=== PATIENT | male | born 1945 | race Hispanic/Latino ===

== ENCOUNTER 2019-08-21 10:56 | Inpatient (IN) | payer MEDICARE ==
[2019-08-21 12:09] LABS: #Eosinphils 0.4 thou/uL (0.0-0.7); #Monocytes 0.5 thou/uL (0.11-0.59); %Basophils 0.5 % (0.0-1.0); %Eosinophils 7.6 % (0.0-10.0); %Lymphocytes 33.1 % (21.0-51.0); %Monocytes 8.7 % (0.0-10.0); %Neutrophils 50.1 % (42.0-75.0); Hemoglobin 9.7 g/dL (14.0-18.0); Mean Corpuscular HGB CONC 34.7 g/dL (32.0-36.0); Mean Corpuscular Hemoglobin 30.6 pg (27.0-31.0); Mean Corpuscular Volume 88.3 fL (78.0-98.0); Mean Platelet Volume 7.1 fL (7.4-10.4); Platelet Count 184 thou/uL (130-400); RBC Distribution Width 12.6 % (11.5-14.5); Red Blood Cell (RBC) Count 3.17 mill/uL (4.70-6.10); White Blood Cell (WBC) Count 5.9 thou/uL (4.8-10.8)
[2019-08-21 12:38] LABS: ALT (SGPT) 23 U/L (8-55); AST (SGOT) 18 U/L (5-34); Albumin 2.7 g/dL (3.4-4.8); Alkaline Phosphatase 98 U/L (40-110); Anion Gap 10 mmol/L (10-20); BUN (Urea Nitrogen) 65 mg/dL (8.4-25.7); Bilirubin, Total 0.3 mg/dL (0.2-1.2); Calc. Creatinine Clearance 0 mL/min (70-130); Calcium 7.9 mg/dL (7.8-10.44); Carbon Dioxide 21 mmol/L (23-31); Chloride 108 mmol/L (98-107); Estimated GFR-MDRD 9; Globulin 3.1 g/dL (2.4-3.5); Glucose 131 mg/dL (83-110); Potassium 4.8 mmol/L (3.5-5.1); Protein, Total 5.8 g/dL (5.8-8.1); Sodium 134 mmol/L (136-145)
[2019-08-21] MEDS ORDERED: hydrALAZINE 20 MG/ML VIAL ONE (13:03)
[2019-08-21 13:18] LABS: PTT 30.7 SEC (22.9-36.1); Prothrombin Time 13.5 SEC (12.0-14.7)
[2019-08-21] MEDS ORDERED: Sodium Chloride 0.9% 1,000 ML IV SCH (13:45)
[2019-08-21] MEDS ORDERED: Acetaminophen 325 MG TAB PO PRN (13:45)
[2019-08-21] MEDS ORDERED: Calcium Carbonate 500 MG ChewTAB PO PRN (13:45)
[2019-08-21] MEDS ORDERED: Amlodipine 5 MG TAB PO SCH (15:00)
--- NOTE | 2019-08-21 15:27 | CON ---
DATE OF CONSULTATION: 08/21/2019 SERVICE: Nephrology. REASON FOR CONSULTATION: Acute renal failure. REQUESTING PHYSICIAN: Dr. Sunday Ramirez. CHIEF COMPLAINT: Dysuria and back pain. HISTORY OF PRESENT ILLNESS: A 74-year-old male, who presents to the hospital with worsening back pain and dysuria. The patient with known history of hypertension and diabetes, reportedly developed hematuria about a month ago in [place] and was seen by a doctor, and lab work did then show hematuria as well as proteinuria and creatinine of 6.93/6.83. The patient subsequently was seen at the [facility] recently and the plan was to get an ultrasound of the kidneys for evaluation of hematuria. However, the patient reportedly developed back pain, which worsened, and last night, he also developed dysuria, that has put him on presentation to the emergency room. The patient was found to have creatinine of 6.08, and was admitted for further evaluation and treatment. The patient thinks that the patient will be needing dialysis. The patient has not seen anybody for a long time. He, however, reportedly saw Dr. Flores of [facility] in April and had blood work done, which we do not have at this time. He denied nausea, vomiting, leg swelling, abdominal pain, but admitted to intermittent chest pain and exertional dyspnea. The patient also denied NSAID use. However, he has a brother, who is on dialysis. He also denied recent change in medication, fever, chills, or rigor. PAST MEDICAL HISTORY: 1. Hypertension. 2. Diabetes, on insulin. PAST SURGICAL HISTORY: None. FAMILY HISTORY: Significant for diabetes and end-stage renal disease. Two kids have diabetes and a brother has end-stage renal disease, on dialysis. SOCIAL HISTORY: The patient lives with family. Here he has an apartment in the area, but also visits [place] regularly. Drinks alcohol occasionally, currently, but used to drink heavily. He is a former smoker, but quit about 30 years ago. Denied recreational drug use. ALLERGIES: NO KNOWN DRUG ALLERGY REPORTED. HOME MEDICATIONS: The patient reports being on insulin, but was unable to tell me other medications he had taken or is taking. REVIEW OF SYSTEMS: Twelve-point review of systems performed was negative other than pertinent positives and negatives included in the history of present illness. PHYSICAL EXAMINATION: VITAL SIGNS: Initial vitals on presentation showed BP of 250/112, pulse 71, respiratory rate 18, SpO2 of 100% on room air, and pain 6/10. The patient was treated with hydralazine and blood pressure improved and is currently 168/80. GENERAL: Comfortable, elderly male, in no obvious distress. Afebrile. Anicteric. Acyanotic. HEENT: Normocephalic, atraumatic. Oral mucosa is moist. NECK: Supple, nontender with no JVD. CARDIOVASCULAR: Regular rhythm and rate with normal heart sounds 1 and 2. RESPIRATORY: Good air entry bilaterally with no obvious rhonchi, crackle, or use of accessory muscles. GI: Full, soft, nontender, nondistended with normal bowel sounds. EXTREMITIES: Grossly normal looking atraumatic with no edema or erythema. Distal pulses are palpable. FINAL CIGAR AND BOX EXAMINER: Conscious and alert oriented x3 with appropriate mental status. Cranial nerves 2 through 12 are grossly intact. DIAGNOSTIC DATA: CBC showed WBC count of 5.9, hemoglobin of 9.7, MCV of 88.3, platelet of 184. Coagulation panel showed PT 13.5, INR 1.0, PTT 30.7. CMP showed sodium 134, potassium 4.8, chloride 108, CO2 of 21, BUN 65, creatinine 6.03, glucose 131, calcium 7.9, total bilirubin 0.3, AST 18, ALT 23, alkaline phosphatase 98, total protein 5.8, albumin 2.7, globulin 3.1. Urinalysis is pending at this time. No image has been done. EKG showed normal sinus rhythm with rate of 65. No obvious ischemic changes were noted. ASSESSMENT: 1. Renal failure: Acute, is unclear. The patient had creatinine of 6.93 on July 27, but there is no any lab prior to July 27. Creatinine actually has improved compared to the level of 6.93 in July, it is currently 6.03, making at least a case for acute component. Chronic kidney disease cannot be ruled out given history of hypertension and diabetes. The patient also had proteinuria and hematuria on lab work of July 27, 2019 and July,. 2. Hypertensive urgency. 3. Hematuria. 4. Dysuria. 5. Bilateral back pain: Concerning for stone or obstructive uropathy. 6. Hyponatremia, mild. 7. Anemia in chronic kidney disease. 8. Hypoalbuminemia. PLAN: 1. We will get stat ultrasound of the kidney and bladder. 2. We will start the patient on sodium bicarb containing IV fluid. 3. We will get urinalysis as well as urine electrolytes. 4. We will also get vitamin D and intact PTH. 5. We will start the patient on amlodipine for blood pressure control. 6. We will recheck renal function in the morning. 7. We will also get iron chemistry in the morning. 8. Further treatment to follow depending on hospital course. We will also [facility]. Job ID: [id number]
[2019-08-21] MEDS: hydrALAZINE 20 MG/ML VIAL SLOW IVP PRN (15:31)
[2019-08-21] MEDS ORDERED: Insulin Regular 300 UNITS/3 ML VIAL SC PRN ×2 (15:48)
[2019-08-21] MEDS ORDERED: Dextrose 50% Abboject 50 ML SYRINGE SLOW IVP PRN (15:48)
[2019-08-21] MEDS ORDERED: Dextrose 5% in Water 1,000 ML IV PRN (15:48)
[2019-08-21] MEDS: Sodium Bicarbonate 75 MEQ in Sodium Chloride 0.45% 1,000 ML IV SCH (16:05)
[2019-08-21 16:10] LABS: Hemoglobin A1c 6.8 % (4.0-6.0)
--- NOTE | 2019-08-21 16:15 | ULT ---
Renal sonogram HISTORY: Renal insufficiency. FINDINGS: Right kidney is 10.5 cm length and left is 10.7 cm. No hydronephrosis or solid mass. Cysts arise from the cortex of each kidney, largest is at the superior pole of the right kidney measuring up to 5.3 cm. Urinary bladder is unremarkable. IMPRESSION: No evidence of urinary tract obstruction. Renal cysts.
[2019-08-21 16:29] VITALS: BMI 24.1
[2019-08-21] MEDS ORDERED: hydrALAZINE 25 MG TAB PO SCH ×2 (16:45→21:00)
--- NOTE | 2019-08-21 17:34 | PDOC.EVN ---
Event Note - Event Note Event Note: H&P dictated. Full code. DPOA - spouse
[2019-08-21 17:41] LABS: Bacteria/HPF None Seen HPF (None Seen); Bilirubin Negative (Negative); Blood, Urine Trace (Negative); Clarity Clear (Clear); Glucose, Urine (Dipstick) 150 mg/dL (Negative); Leukocyte Negative Leu/uL (Negative); Nitrite Negative (Negative); Protein, Urine (Dipstick) 300 mg/dL (Neg-Trace); RBC/HPF 0-3 HPF (0-3); Squamous Epithelial None Seen HPF (0-3); Urobilinogen Normal mg/dL (Less than 2); WBC/HPF 0-3 HPF (0-3)
--- NOTE | 2019-08-21 17:52 | HP ---
PRIMARY CARE PHYSICIAN: Emily Flores MD CHIEF COMPLAINT: Bilateral flank pain with dysuria of 1 week duration. HISTORY OF PRESENT ILLNESS: The patient is a 74-year-old male with diabetes mellitus, type 2, presented to the emergency room with above complaints. The patient was recently in [place]. He had worsening bilateral flank pain and dysuria, for which he was evaluated. He was found to have acute kidney injury. The patient returned to [place] and presented to the emergency room. He continues to have bilateral flank pain with burning in urination. His urine was initially dark; however, today, it is clearing. The pain is moderate in intensity without any aggravating or relieving factor. He denies similar symptoms in the past. He also had a renal ultrasound over there and was found to have a questionable tumor. He is unable to provide further details. In the emergency room, initial vital signs showed temperature 98.2, respirations of 18, pulse of 66 with a blood pressure of 250/112. His workup was consistent with acute kidney injury with creatinine of 6.03 and BUN 65. He received 20 mg IV hydralazine in the emergency room. PAST MEDICAL HISTORY: 1. Diabetes mellitus, type 2. 2. Hypertension. 3. GERD. PAST SURGICAL HISTORY: Cataract surgery. SOCIAL HISTORY: The patient denies any drug allergies. CURRENT HOME MEDICATION: The patient only takes Lantus 15 units daily. SOCIAL HISTORY: The patient is a former smoker. He currently lives in an apartment in [place]. He drinks alcohol socially. He quit smoking many years ago. He has approximately [id number] history of smoking. FAMILY HISTORY: Positive for diabetes mellitus, type 2. His brother is on hemodialysis. REVIEW OF SYSTEMS: All other review of systems was reviewed and was found negative. PHYSICAL EXAMINATION: VITAL SIGNS: As discussed above. GENERAL: A 74-year-old male, in no apparent distress. HEENT: Head, atraumatic and normocephalic. Sclerae are anicteric. Moist mucous membranes. No oral lesion. NECK: Supple. No JVD. No carotid bruit. LUNGS: Essentially clear to auscultation bilaterally. No wheezing, rales, or rhonchi. HEART: S1 and S2 present. No rubs or gallops. There is 2/6 systolic murmur over the mitral area. ABDOMEN: Soft with mild tenderness over the left flank. No rebound or guarding. EXTREMITIES: No edema or calf tenderness. NEUROLOGIC: Grossly nonfocal. Moves all 4 extremities. PSYCHIATRIC: Alert, awake, and oriented x3. SKIN: Warm and dry. LYMPH NODES: No palpable lymph nodes in the neck. PERIPHERAL VASCULAR: Radial pulses are palpable bilaterally. MUSCULOSKELETAL: No joint swelling or tenderness. LABORATORY FINDINGS: Chest x-ray film from [place] by my review was negative for infiltrate. EKG by my review showed sinus rhythm without significant ST-T wave changes. CBC showed WBC 5.9 with hemoglobin 9.7, hematocrit 28, platelet of 184. PT, INR, and PTT normal range. Chemistry showed sodium 134, potassium 4.8, chloride 108, bicarb 21, BUN 65, creatinine 6.03. Hemoglobin A1c 6.8. Renal ultrasound has been ordered. Report is pending at this time. IMPRESSION: 1. Acute kidney injury of unclear etiology. Rule out obstructive uropathy. His baseline creatinine is unknown. 2. Hypertension with hypertensive urgency. 3. Dysuria with hematuria. 4. Diabetes mellitus, type 2. 5. Gastroesophageal reflux disease. 6. Hyponatremia. 7. Metabolic acidosis secondary to renal failure. 8. Anemia, most likely secondary to renal insufficiency. PLAN: The patient will be monitored on the medical floor. Nephrology will be consulted. We will gently hydrate. Renal ultrasound is pending. We will start him on Flomax. We will add hydralazine for blood pressure control. Urinalysis is pending at this time. We will also add urine studies. We will recheck labs in a.m. We will start him on renal diet for now. Plan of care was discussed with the patient in detail. He stated understanding. The patient will require 2 to 3 days for stabilization. Job ID: [id number]
[2019-08-21 17:53] LABS: Creatinine, Urine 47.48 mg/dL (63-166)
[2019-08-21] MEDS: Famotidine 20 MG TAB PO SCH (21:23)
[2019-08-21] MEDS: Famotidine/PF 20 mg/2ml Vial SLOW IVP SCH (21:24)
[2019-08-21] MEDS: Tamsulosin HCl 0.4 MG CAP PO SCH (21:24)
[2019-08-22 06:31] LABS: #Basophils 0.1 thou/uL (0.0-0.2); #Eosinphils 0.4 thou/uL (0.0-0.7); #Lymphocytes 1.9 thou/uL (1.20-3.40); #Monocytes 0.5 thou/uL (0.11-0.59); #Neutrophils 2.7 thou/uL (1.40-6.50); %Basophils 2.2 % (0.0-1.0); %Eosinophils 6.6 % (0.0-10.0); %Lymphocytes 34.5 % (21.0-51.0); %Monocytes 8.3 % (0.0-10.0); %Neutrophils 48.4 % (42.0-75.0); Hemoglobin 9.1 g/dL (14.0-18.0); Mean Corpuscular HGB CONC 34.4 g/dL (32.0-36.0); Mean Corpuscular Hemoglobin 30.5 pg (27.0-31.0); Mean Corpuscular Volume 88.7 fL (78.0-98.0); Mean Platelet Volume 7.5 fL (7.4-10.4); Platelet Count 197 thou/uL (130-400); RBC Distribution Width 12.7 % (11.5-14.5); Red Blood Cell (RBC) Count 2.97 mill/uL (4.70-6.10); White Blood Cell (WBC) Count 5.5 thou/uL (4.8-10.8)
[2019-08-22 06:55] LABS: Albumin 2.4 g/dL (3.4-4.8); Anion Gap 13 mmol/L (10-20); BUN (Urea Nitrogen) 66 mg/dL (8.4-25.7); BUN/Creatinine Ratio 10.96; Calc. Creatinine Clearance 11 mL/min (70-130); Calcium 7.6 mg/dL (7.8-10.44); Carbon Dioxide 19 mmol/L (23-31); Chloride 109 mmol/L (98-107); Estimated GFR-MDRD 9; Glucose 95 mg/dL (83-110); Iron Binding Capacity, Total 181 mcg/dL (261-462); Phosphorus 5.3 mg/dL (2.3-4.7); Potassium 4.5 mmol/L (3.5-5.1); Sodium 136 mmol/L (136-145)
[2019-08-22 06:57] LABS: Iron 69 ug/dL (65-175); Iron Binding Capacity, Total 179 mcg/dL (261-462)
[2019-08-22] MEDS: Amlodipine 5 MG TAB PO SCH (08:26)
[2019-08-22] MEDS: hydrALAZINE 25 MG TAB PO SCH ×3 (08:26→21:39)
[2019-08-22] MEDS: Sodium Bicarbonate Tab 325 MG TAB PO SCH ×2 (08:26→21:39)
--- NOTE | 2019-08-22 11:54 | MRI ---
MRI Abdomen WO Con History: Kidney cyst Comparison: Renal ultrasound prior day Findings: Trace right pleural effusion. No significant pericardial fluid. Renal mass evaluation is li mited without intravenous contrast. No intrahepatic or extrahepatic dilatation is appreciated. No significant cholelithiasis. Mild third spacing of fluid in the retroperitoneum. Bilateral renal cysts. No diffusion restriction. Pancreas is unremarkable. No dilated loops of bowel in the upper abdomen. No significant hepatic steatosis. Splenic size is normal. Aortic contour is nonaneurysmal. Impression: 1. Bilateral simple relatively simple appearing renal cysts. 2. Small volume fluid within the retroperitoneum as well as low-grade edema of the paraspinal muscula ture sequelae of underlying medical renal disease. 3. Trace right pleural effusion. 4. No cholelithiasis or intrahepatic biliary dilatation. 5. No evidence for obstructive uropathy.
[2019-08-22] MEDS ORDERED: PROPOFOL 200 MG/20 ML VIAL ONE (11:59)
--- NOTE | 2019-08-22 13:25 | MRI ---
MRI Pelvis WO Con History: Bladder mass Comparison: Ultrasound prior day Findings: Evaluation for masses limited without intravenous contrast. Minimal trabecular thickening o f the urinary bladder. No large mass is appreciated. Peripheral scarring of the prostate gland. On the T1 imaging sequence there is severe motion. No allyn ow infiltrative process. No significant free fluid in the pelvis. Mild third spacing of fluid. Impression: Given the limitations of lack of intravenous contrast, no bladder mass.
--- NOTE | 2019-08-22 13:33 | PRG ---
DATE OF SERVICE: 08/22/2019 SERVICE: Nephrology. SUBJECTIVE: A 74-year-old male seen in followup for renal failure. The patient was admitted due to dysuria and bilateral back pain. Found to have elevated creatinine of above 6. He was reportedly found to have bladder mass on ultrasound done in [place] in July 2019 when he was seen for hematuria. During that visit, the patient was also found to have creatinine of 6.93. Past medical history significant for hypertension and diabetes. OBJECTIVE: VITAL SIGNS: Temperature 98.2, pulse 68, respiratory rate 18, SpO2 of 94% on room air, and blood pressure is 167/69. GENERAL: Elderly male, in no distress. Afebrile. Anicteric. Acyanotic. HEENT: Normocephalic, atraumatic. Oral mucosa is moist. CARDIOVASCULAR: Regular rhythm and rate with normal heart sounds 1 and 2. RESPIRATORY: Fair air entry bilateral with few transmitted breath sounds, but no crackle or rhonchi. GASTROINTESTINAL: Full, soft, nontender, and nondistended with normal bowel sounds. EXTREMITIES: Grossly normal looking, atraumatic with no edema or erythema. CENTRAL NERVOUS SYSTEM: Conscious, alert, oriented x3 with appropriate mental status. DIAGNOSTIC DATA: CBC showed WBC count of 5.5, hemoglobin of 9.1, MCV of 88.7, and platelets of 197. Renal function panel today showed sodium 136, potassium 4.5, chloride 109, CO2 of 19, BUN 66, creatinine 6.02, glucose 95, calcium 7.6, phosphorus 5.3, and albumin 2.4. Iron chemistry showed serum iron 69, TIBC 181 with 39% saturation and ferritin of 221.99. Urinalysis showed proteinuria, but no rbc or wbc on microscopy. Urine electrolytes showed random protein of 654 with urine creatinine of 47.8 with UPC more than 15 g of creatinine. Renal ultrasound performed here showed cysts from the cortex of both kidneys with largest being on the superior pole of right kidney measuring 5.3 cm. Right kidney is said to measure 10.5 cm while left is 10.7 cm long. There was no hydronephrosis. ASSESSMENT: 1. Renal failure, acuity and etiology are unclear. The patient is found to have proteinuria with UPC of more than 10 g, suggestive of nephrotic range proteinuria. Ultrasound also showed multiple cysts on both kidneys concerning for polycystic kidney disease. Of note, the patient had creatinine of 6.93 in July 2019, but is currently 6.02. 2. Metabolic acidosis: Most likely due to chronic kidney disease. 3. Hypertension: Control is acceptable. 4. Bladder mass noticed on ultrasound performed in [place] in July 2019. 5. Multiple kidney cysts with largest measuring above 5 cm in diameter. PLAN: 1. We will continue IV fluid therapy as well as alkaline therapy. We will monitor renal function. 2. We will also get MRI of the kidneys as well as the bladder as the patient cannot get contrast given advanced renal failure. 3. Continue current antihypertensives regimen. 4. We will consult General Surgery for tunneled dialysis catheter as well as AV fistula creation as the patient is at least CKD, stage 5 in preparation for hemodialysis. 5. Recommend Urology consult given history of bladder mass noticed on ultrasound done in [place]. However, ultrasound done here was unremarkable. Further treatment to follow depending on hospital course and review of other diagnostic test. Job ID: [id number]
--- NOTE | 2019-08-22 14:44 | CON ---
DATE OF CONSULTATION: HISTORY OF PRESENT ILLNESS: Edgar Guerrero is a 74-year-old male, English speaking only, long history of hypertension, diabetes, presents with end-stage renal disease, seen by Dr. Adams, Nephrology, admitted by the hospitalist service. I have been asked to see him regarding hemodialysis access. He has a right antecubital IV in place. His hemoglobin A1c is 6.8, creatinine 6, BUN 66, GFR 9. It is noted that in 2015, his GFR was greater than 90. The patient reports that he was in [place] on vacation, felt poorly, had some lower back pain, visited a physician, was told that he had bladder tumor and deteriorating renal function. He was admitted to the hospitalist service on this occasion for similar complaints, bilateral flank plain with dysuria. He was found to have deteriorating renal function, admitted for evaluation. Renal ultrasound was unremarkable without obstructive uropathy and no abnormalities of bladder, but there were a few cysts noted on each of the kidneys. He subsequently underwent MRI scan of the abdomen and pelvis, renal that was unremarkable. Urinalysis revealed urine protein 300, ketones negative, nitrite negative. Urine bacteria none, urine red cells none. Urine culture not evident. 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 He is . He is English-speaking only. His family accompanies him. Family reports that when he was in [place] being evaluated, he was told he had some sort of bladder tumor. They think this was done by ultrasound. The patient's family also reports that when he was in [place], he had some sort of cardiac evaluation the nature which I am unable to determine, but they state his cardiac evaluation was normal. They state that 10 years ago, the patient was seen at this hospital. Looking at old records, he was seen in February of 2008 with diagnosis of diabetes, hypertension, GERD, presenting with chest pain, onset 30 minutes prior and not related to stress or activity. The pain was associated with nausea, vomiting, weakness. He was given 81 mg of aspirin, nitroglycerin, and nitroglycerin paste. At that time, he was diagnosed with alcohol abuse and chest pain. PA and lateral chest x-ray were unremarkable. Apparently, the patient was discharged home the next day from the [facility] service. Apparently, myocardial infarction was ruled out. He was discharged home on Crestor, metformin, Accupril, glipizide, and insulin was initiated on the discharge. It was felt pain was reflux in nature and he was discharged with instructions to follow up with family practice in the next 2 weeks to arrange a stress test. Apparently, he did not follow up. ALLERGIES: NONE. SOCIAL HISTORY: Tobacco, none. Alcohol, none. MEDICATIONS: At home, insulin. In the hospital, he was started on; 1. Flomax. 2. Hydralazine. 3. Pepcid. 4. Tums. 5. Norvasc. 6. Tylenol. PAST SURGICAL HISTORY: Cataract surgery. PAST MEDICAL HISTORY: Diabetes mellitus, hypertension, GERD, chest pain in 2007. Suboptimal evaluation possible due to lack of followup. Recent cardiac evaluation in [place] and they were told his heart looked good. PHYSICAL EXAMINATION: VITAL SIGNS: Height 5 foot 7, 154 pounds, 24 BMI, 68, 157/69, 144/65. HEAD, EARS, EYES, NOSE, AND THROAT: Unremarkable. LUNGS: Clear to auscultation. CARDIAC: Regular rate and rhythm without murmur or gallop. ABDOMEN: Soft and nontender. No mass. EXTREMITIES: Unremarkable. Antecubital IV right. Palpable radial pulses bilaterally. LABORATORY DATA: White count 5, hemoglobin 9. BUN, creatinine, and GFR, 66, 6.02, and 9 respectfully. Glucose 184 to 104. ASSESSMENT: End-stage renal disease secondary to diabetes and hypertension. PLAN: Hemodialysis catheter and central line to protect his veins. He already has an AC IV in which should not be placed in the dialysis patient or chronic kidney disease. The patient will remove this as soon as possible. We will plan outpatient dialysis access on a nondialysis day in the future in next two weeks. Job ID: [id number]
[2019-08-22] MEDS ORDERED: Bupivacaine PF 0.5% 30 ML VIAL ONE (15:48)
[2019-08-22] MEDS ORDERED: Heparin 10,000 UNITS/1 ML VIAL ONE (15:48)
[2019-08-22] MEDS ORDERED: Lidocaine 2% w/Epinephrine 1:200K 20 ML VIAL ONE (15:48)
[2019-08-22] MEDS ORDERED: Sodium Chloride 0.9% 0 ML ONE (15:48)
[2019-08-22] MEDS ORDERED: EPINEPHrine 1 MG/ML AMP ONE (15:48)
[2019-08-22] MEDS ORDERED: Fentanyl 100 MCG/2 ML VIAL ONE (15:50)
[2019-08-22] MEDS ORDERED: PROPOFOL 40 ML ONE (15:50)
--- NOTE | 2019-08-22 16:30 | PDOC.HOSPP ---
- Subjective Encounter Date: 08/22/19 Encounter Time: 08:00 (8) Subjective: Pt seen for followup re: EDIS. States he does not have any complaints. - Objective Vital Signs & Weight: Vital Signs (12 hours) Temp Pulse Resp BP BP BP Pulse Ox 08/22/19 15:51 68 08/22/19 08:26 68 08/22/19 07:42 98.2 F 68 18 157/69 H 94 L 08/22/19 05:00 139/67 131/62 144/65 H Weight Weight 154 lb 5.177 oz I&O: 08/21/19 08/22/19 08/23/19 06:59 06:59 06:59 Intake Total 300 Balance 300 Result Diagrams: 08/22/19 05:58 08/22/19 05:58 Additional Labs: Accuchecks 08/22/19 08/22/19 08/21/19 11:22 04:02 20:35 POC Glucose 90 104 184 H 08/21/19 16:27 POC Glucose 90 Labs and MARs reviewed by ma Hospitalist ROS - Review of Systems Cardiovascular: denies: chest pain, palpitations, orthopnea, paroxysmal noc. dyspnea, edema, light headedness Gastrointestinal: denies: nausea, vomiting, abdominal pain, diarrhea, constipation, melena, hematochezia - Medication Medications: Active Medications Generic Name Dose Route Start Last Admin Trade Name Freq PRN Reason Stop Dose Admin Amlodipine Besylate 5 mg 08/22/19 09:00 08/22/19 08:26 Norvasc PO 5 mg DAILY SVETLANA Administration Famotidine 20 mg 08/21/19 21:00 08/21/19 21:24 Pepcid SLOW IVP Not Given QPM SVETLANA Famotidine 20 mg 08/21/19 21:00 08/21/19 21:23 Pepcid PO 20 mg QPM SVETLANA Administration Hydralazine HCl 10 mg 08/21/19 13:47 08/21/19 15:31 Apresoline SLOW IVP 10 mg Q4H PRN Administration SBP Greater Than 180 Hydralazine HCl 25 mg 08/22/19 09:00 08/22/19 15:51 Apresoline PO Not Given TID SVETLANA Sodium Bicarbonate 75 meq/ 1,075 mls @ 100 mls/hr 08/21/19 15:00 08/21/19 16: 05 Sodium Chloride IV 1,075 mls INF SVETLANA Administration Sodium Bicarbonate 650 mg 08/22/19 09:00 08/22/19 08:26 Bicarbonate, Sodium PO 650 mg BID SVETLANA Administration Tamsulosin HCl 0.4 mg 08/21/19 21:00 08/21/19 21:24 Flomax PO 0.4 mg HS SVETLANA Administration - Exam General Appearance: NAD Eye: anicteric sclera ENT: normocephalic atraumatic Neck: supple Heart: RRR Respiratory: CTAB, no rales Gastrointestinal: soft, non-tender Musculoskeletal: normal tone, normal strength Psychiatric: normal affect, normal behavior Hosp A/P (1) EDIS (acute kidney injury) Code(s): N17.9 - ACUTE KIDNEY FAILURE, UNSPECIFIED Status: Acute (2) DM2 (diabetes mellitus, type 2) Status: Chronic (3) HTN (hypertension) Code(s): I10 - ESSENTIAL (PRIMARY) HYPERTENSION Status: Chronic (4) GERD (gastroesophageal reflux disease) Code(s): K21.9 - GASTRO-ESOPHAGEAL REFLUX DISEASE WITHOUT ESOPHAGITIS Status: Chronic - Plan plan discussed w/ family Continue amlodipine and hydralazine. Pt will likely need dialysis. Continue accuchecks, insulin sliding scale. Continue famotidine.
[2019-08-22] MEDS ORDERED: Sodium Chloride 0.9% 10 ML ONE (16:38)
--- NOTE | 2019-08-22 17:08 | RAD ---
CHEST ONE VIEW: 08/22/19 HISTORY: Central line placement. COMPARISON: Radiograph 2007. FINDINGS: Dialysis catheter in place with tip projecting in the right atrium. The leftward approach IJ central venous catheter is in place with the tip extending through the right brachiocephalic vein. There is atelectatic changes in both lung bases. IMPRESSION: 1. No pneumothorax. 2. The leftward approach IJ central venous catheter tip projects over the right brachiocephalic vein in a cephalad course. 3. Evidence of old left clavicular injury/resection with multiple left rib fractures. POS: HOME
[2019-08-22] MEDS: traMADol HCl 50 MG TAB PO PRN ×2 (18:10→23:40)
[2019-08-22] MEDS: Acetaminophen 500 MG TAB PO PRN (19:10)
[2019-08-22] MEDS ORDERED: Ondansetron ODT 4 MG TAB PO PRN (20:10)
[2019-08-22] MEDS: Famotidine/PF 20 mg/2ml Vial SLOW IVP SCH (20:13)
[2019-08-22] MEDS: Sodium Bicarbonate 75 MEQ in Sodium Chloride 0.45% 1,000 ML IV SCH (20:17)
[2019-08-22] MEDS: Ondansetron PF 4 MG/2 ML Vial IVP PRN (20:24)
[2019-08-22] MEDS: Famotidine 20 MG TAB PO SCH (20:26)
[2019-08-22] MEDS: Tamsulosin HCl 0.4 MG CAP PO SCH (21:39)
[2019-08-22] MEDS: cloNIDine 0.1 MG TAB PO PRN (23:39)
[2019-08-22] MEDS: hydrALAZINE 20 MG/ML VIAL SLOW IVP PRN (23:40)
[2019-08-23] MEDS: Ondansetron PF 4 MG/2 ML Vial IVP PRN ×2 (03:10→08:43)
[2019-08-23] MEDS: Sodium Bicarbonate 75 MEQ in Sodium Chloride 0.45% 1,000 ML IV SCH (05:25)
[2019-08-23 06:11] LABS: Albumin 2.6 g/dL (3.4-4.8); Anion Gap 14 mmol/L (10-20); BUN (Urea Nitrogen) 63 mg/dL (8.4-25.7); BUN/Creatinine Ratio 10.14; Calc. Creatinine Clearance 10 mL/min (70-130); Calcium 7.7 mg/dL (7.8-10.44); Carbon Dioxide 22 mmol/L (23-31); Chloride 106 mmol/L (98-107); Estimated GFR-MDRD 9; Glucose 157 mg/dL (83-110); Phosphorus 6.9 mg/dL (2.3-4.7); Potassium 4.9 mmol/L (3.5-5.1); Sodium 137 mmol/L (136-145)
[2019-08-23] MEDS: Sodium Bicarbonate Tab 325 MG TAB PO SCH ×2 (08:40→20:25)
[2019-08-23] MEDS: Acetaminophen 500 MG TAB PO PRN (08:41)
[2019-08-23] MEDS: hydrALAZINE 25 MG TAB PO SCH ×3 (08:41→20:25)
[2019-08-23] MEDS: Amlodipine 5 MG TAB PO SCH (08:42)
[2019-08-23] MEDS ORDERED: Ergocalciferol 1.25 MG(50,000 UNITS) CAP PO SCH (09:00)
[2019-08-23 10:19] LABS: Complement-C4 19.5 mg/dL (15-53)
--- NOTE | 2019-08-23 10:22 | ULT ---
ULTRASOUND VESSEL MAPPING DIALYSIS ACCESS: HISTORY: End stage renal disease. COMPARISON: None. TECHNIQUE: Real-time acosta-scale, color Doppler and spectral analysis of the bilateral upper extremity arterial a nd venous system was performed. FINDINGS: RIGHT BRACHIAL ARTERY: 5.5 mm RADIAL ARTERY: 2.4 mm ULNAR ARTERY: 2.9 mm CEPHALIC BASILIC RIGHT SHOULDER 2 mm 3.1 mm RIGHT UPPER ARM 2.4 mm 2.2 mm RIGHT MID UPPER ARM 2.7 mm 3.7 mm RIGHT JUST PROXIMAL TO ELBOW 4.6 mm 2.1 mm RIGHT JUST DISTAL TO ELBOW 2.8 mm 0.9 mm RIGHT MID FOREARM 2.4 mm 0.8 mm RIGHT WRIST 1.9 mm 1.0 mm LEFT The internal jugular vein on the left is not seen due to overlying bandages. BRACHIAL ARTERY: 5.3 mm RADIAL ARTERY: 3.5 mm ULNAR ARTERY: 1.6 mm CEPHALIC BASILIC LEFT SHOULDER 3.0 mm 3.8 mm LEFT UPPER ARM 1.8 mm 2.5 mm LEFT MID UPPER ARM 2.6 mm 2.3 mm LEFT JUST PROXIMAL TO ELBOW 3.7 mm 1.8 mm LEFT JUST DISTAL TO ELBOW 1.8 mm 1.1 mm LEFT MID FOREARM 1.4 mm 1.2 mm LEFT WRIST 1.4 mm 0.9 mm IMPRESSION: Vascular size as above. POS: OFF
[2019-08-23] MEDS ORDERED: Amlodipine 5 MG TAB PO SCH (11:45)
--- NOTE | 2019-08-23 12:13 | PRG ---
DATE OF SERVICE: 08/23/2019 SERVICE: Nephrology. SUBJECTIVE: A 74-year-old male seen in followup for renal failure. The patient with no previous history of CKD, presented with abnormal labs of creatinine above 6. He complains of nausea and some vomiting. Had TDC (tunneled dialysis catheter) placement yesterday. Denies shortness of breath, fever, or leg swelling. OBJECTIVE: VITAL SIGNS: Temperature 97.5, pulse 79, respiratory rate 18, SpO2 of 94% on room air, blood pressure is 164/72. GENERAL: Elderly male, in no distress. Afebrile. Anicteric. Acyanotic. HEENT: Normocephalic, atraumatic. Oral mucosa is moist. NECK: Supple, nontender with no JVD. CARDIOVASCULAR: Regular rhythm and rate with normal heart sounds 1 and 2. RESPIRATORY: Good air entry bilaterally with no obvious crackle or rhonchi or use of accessory muscles. GI: Full, soft, nontender, nondistended with normal bowel sounds. EXTREMITIES: Grossly normal looking atraumatic with no edema or erythema. 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 Cranial nerves 2 through 12 are grossly intact. DIAGNOSTIC DATA: Renal function panel showed sodium 137, potassium 4.9, chloride 106, CO2 of 22, BUN 63, creatinine 6.21, glucose 157, calcium 7.7, phosphorus 6.9, albumin 2.6. In the last 24 hours with urine output of 1175. ASSESSMENT: 1. Renal failure: Acuity and etiology remains unclear. 2. History of transient hematuria. 3. Nephrotic-range proteinuria by UPC. 4. Hypertension, control is suboptimal. The patient however is getting IV fluid. 5. Cystic kidney disease, noted to be simple cyst on MRI. 6. Reported bladder mass on ultrasound done in [place]. Ultrasound performed here as well as MRI was unremarkable. 7. Diabetes mellitus, on treatment. PLAN: 1. We will get him a 24-hour urine collection for urine protein estimation given the patient had nephrotic-range proteinuria on UPC. We will also get urine protein electrophoresis as well as immunofixation and light chain ratio. We will also get AZAM with reflex as well as serum electrophoresis and complement. We will also get renal biopsy to ascertain the etiology of renal function given that kidneys are of normal size. 2. We will start the patient on vitamin D supplementation given vitamin D deficiency. 3. There is no immediate need for hemodialysis at this time. We will however start the patient on Renvela given hyperphosphatemia. Further treatment to follow depending on hospital course. We will also consult Case Management to help with arrangement of dialysis here as this patient will surely be on hemodialysis. Care plan was discussed with the patient and son and they verbalized understanding. Further treatment to follow depending on hospital course. We will also increase the amlodipine to 10 mg daily to get adequate BP control. 4. We will also discontinue IV fluid as there has been no significant improvement in renal function with IV fluids. Job ID: [id number]
--- NOTE | 2019-08-23 12:54 | PDOC.HOSPP ---
- Subjective Encounter Date: 08/23/19 Encounter Time: 09:40 Subjective: Pt seen for followup re: Acute renal failure. states he feels well. - Objective Vital Signs & Weight: Vital Signs (12 hours) Temp Pulse Resp BP BP Pulse Ox 08/23/19 11:26 97.4 F L 95 16 179/83 H 95 08/23/19 08:42 79 08/23/19 08:41 79 08/23/19 07:38 97.5 F L 79 18 164/72 H 94 L 08/23/19 04:50 97.5 F L 76 18 159/68 H 98 Weight Weight 154 lb 5.177 oz I&O: 08/22/19 08/23/19 08/24/19 06:59 06:59 06:59 Intake Total 1800 Output Total 1175 Balance 625 Result Diagrams: 08/22/19 05:58 08/23/19 05:34 Additional Labs: Accuchecks 08/23/19 08/22/19 08/22/19 04:50 20:36 17:41 POC Glucose 173 H 144 H 134 H 08/22/19 08/22/19 16:13 11:22 POC Glucose 94 90 labs and MARs reviewed by [place] Hospitalist ROS - Review of Systems Cardiovascular: denies: chest pain, palpitations, orthopnea, paroxysmal noc. dyspnea, edema, light headedness Gastrointestinal: denies: nausea, vomiting, abdominal pain, diarrhea, constipation, melena, hematochezia Musculoskeletal: reports: back pain - Medication Medications: Active Medications Generic Name Dose Route Start Last Admin Trade Name Freq PRN Reason Stop Dose Admin Acetaminophen 1,000 mg 08/22/19 14:01 08/23/19 08:41 Tylenol PO 1,000 mg Q6H PRN Administration Moderate to Severe Pain (6-10) Amlodipine Besylate 5 mg 08/23/19 11:45 08/23/19 11:53 Norvasc PO 08/23/19 13:45 5 mg NOW SVETLANA Administration Clonidine 0.1 mg 08/21/19 13:47 08/22/19 23:39 Catapres PO 0.1 mg Q4H PRN Administration SBP Greater Than 180 Ergocalciferol 1.25 mg 08/23/19 09:00 08/23/19 10:59 Drisdol PO 1.25 mg Q7DAYS SVETLANA Administration Famotidine 20 mg 08/21/19 21:00 08/22/19 20:13 Pepcid SLOW IVP 20 mg QPM SVETLANA Administration Famotidine 20 mg 08/21/19 21:00 08/22/19 20:26 Pepcid PO Not Given QPM SVETLANA Hydralazine HCl 10 mg 08/21/19 13:47 08/22/19 23:40 Apresoline SLOW IVP 10 mg Q4H PRN Administration SBP Greater Than 180 Hydralazine HCl 25 mg 08/22/19 09:00 08/23/19 08:41 Apresoline PO 25 mg TID SVETLANA Administration Ondansetron HCl 4 mg 08/22/19 20:10 08/23/19 08:43 Zofran IVP 4 mg Q6H PRN Administration Nausea/Vomiting Sodium Bicarbonate 650 mg 08/22/19 09:00 08/23/19 08:40 Bicarbonate, Sodium PO 650 mg BID SVETLANA Administration Tamsulosin HCl 0.4 mg 08/21/19 21:00 08/22/19 21:39 Flomax PO 0.4 mg HS SVETLANA Administration Tramadol HCl 50 mg 08/22/19 14:01 08/22/19 23:40 Ultram PO 50 mg Q4H PRN Administration Pain - Exam General Appearance: NAD Eye: anicteric sclera ENT: moist mucosa Neck: supple Heart: RRR Respiratory: CTAB, no rales Gastrointestinal: soft, non-tender Skin: no rashes Musculoskeletal: no muscle wasting Psychiatric: normal affect, normal behavior Hosp A/P (1) EDIS (acute kidney injury) Code(s): N17.9 - ACUTE KIDNEY FAILURE, UNSPECIFIED Status: Acute (2) DM2 (diabetes mellitus, type 2) Status: Chronic (3) HTN (hypertension) Code(s): I10 - ESSENTIAL (PRIMARY) HYPERTENSION Status: Chronic (4) GERD (gastroesophageal reflux disease) Code(s): K21.9 - GASTRO-ESOPHAGEAL REFLUX DISEASE WITHOUT ESOPHAGITIS Status: Chronic - Plan plan discussed w/ family, out of bed/ambulate BP high, amlodipine dose increased. Continue accuchecks, insulin sliding scale. Continue famotidine. PRN pain medications for back pain. No evidence of tumor in MRI abdo/pelvis. Pt has renal cysts.
[2019-08-23] MEDS: Tamsulosin HCl 0.4 MG CAP PO SCH (20:25)
[2019-08-23] MEDS: Famotidine 20 MG TAB PO SCH (20:25)
[2019-08-23] MEDS: Famotidine/PF 20 mg/2ml Vial SLOW IVP SCH (20:26)
[2019-08-24 07:09] LABS: Anion Gap 15 mmol/L (10-20); BUN (Urea Nitrogen) 66 mg/dL (8.4-25.7); BUN/Creatinine Ratio 9.55; Calc. Creatinine Clearance 9 mL/min (70-130); Calcium 8.1 mg/dL (7.8-10.44); Carbon Dioxide 23 mmol/L (23-31); Chloride 103 mmol/L (98-107); Estimated GFR-MDRD 8; Glucose 122 mg/dL (83-110); Phosphorus 6.8 mg/dL (2.3-4.7); Potassium 4.3 mmol/L (3.5-5.1); Sodium 137 mmol/L (136-145)
[2019-08-24 07:50] LABS: INR-International Normal Ratio 1.1; PTT 32.4 SEC (22.9-36.1); Prothrombin Time 14.3 SEC (12.0-14.7)
[2019-08-24] MEDS: hydrALAZINE 25 MG TAB PO SCH ×3 (09:14→20:59)
[2019-08-24] MEDS: Sodium Bicarbonate Tab 325 MG TAB PO SCH ×2 (09:15→21:00)
[2019-08-24] MEDS: Amlodipine 5 MG TAB PO SCH (09:15)
--- NOTE | 2019-08-24 11:26 | OP ---
DATE OF PROCEDURE: 08/21/2019 PREOPERATIVE DIAGNOSES: 1. End-stage renal disease. 2. Poor IV access in the IV antecubital area. 3. Need of fistula. POSTOPERATIVE DIAGNOSES: 1. End-stage renal disease. 2. Poor IV access in the IV antecubital area. 3. Need of fistula. PROCEDURES PERFORMED: 1. Right internal jugular cuffed tunneled dialysis catheter. 2. Left internal jugular central line. 3. Ultrasound and fluoroscopy used. ANESTHESIA: Intravenous sedation and local with 0.5% Marcaine 30 mL mixed with 1% Xylocaine with epinephrine 20 mL. DESCRIPTION OF PROCEDURE: The patient was taken to the operating room, where under intravenous sedation, neck and chest were prepared with ChloraPrep and draped in routine fashion. Local anesthetic mixture was infiltrated into the skin and subcutaneous tissue about the operative site. Using ultrasound guidance, the right and left internal jugular veins were cannulated with trocar catheter, J-wire was threaded, trocar catheter removed. Skin site was enlarged sharply on both sides. Seldinger technique used to place a triple-lumen catheter on the left IJ, removing the J-wire, and securing the catheter with 3-0 nylon suture and each port aspirated blood, flushed with saline solution. Stab incision was made over the right chest. Tunneling device was used to tunnel the cuffed tunneled hemodialysis Angio[employer] pre-curved catheter, placed the fabric cuff beneath the skin, securing it with 3-0 nylon suture and sterile dressings applied. Small and medium size dilators placed over the J-wire into the internal jugular vein and removed. Dilator and Peel-Away sheath placed over the J-wire into the superior vena cava. Dilator and J-wire were removed. Catheter placed with the Peel-Away sheath, which was removed and platysma was approximated with 4-0 Monocryl, skin with subdermal 4-0 Monocryl and [place] glue and sterile dressings applied. Each port aspirated blood, flushed with saline solution and heparinized saline solution with 1000 units of heparin per mL, indicating volume of the port. Final fluoroscopic images revealed good line placement. The patient tolerated the procedure well. Job ID: [id number]
[2019-08-24] MEDS ORDERED: Sodium Bicarbonate 2.5 MEQ/5 ML VIAL ONE (14:43)
[2019-08-24] MEDS ORDERED: Midazolam HCl 2 mg/2 ml Vial ONE (14:44)
[2019-08-24] MEDS ORDERED: Fentanyl 100 MCG/2 ML VIAL ONE (14:44)
--- NOTE | 2019-08-24 15:57 | CT ---
EXAM: CT Renal Perc Biopsy PROVIDED CLINICAL HISTORY: Acute renal failure. COMPARISON: None TECHNIQUE: The procedure including risks and complications were explained to the patient with the aid of a inter preter. After informed consent was obtained, the patient was placed on the CT scan table in a supine position. Limited noncontrast CT scan was obtained through the level of the kidneys with grid localizers in place. An area overlying the inferior pole left kidney was marked, and the area was meticulously prepped and draped in the usual sterile fashion. The skin and subcutaneous tissues were infiltrated with buffered 1% lidocaine for local anesthesia at the intended puncture site overlying the inferior pole left kidney. A small skin incision was made. A 17-gauge guide needle was advanced followed by 3 axial noncontrasted images. This was repeate d until the tip of the guide needle was positioned just within the inferior pole posterolateral left renal cortex. A total of two 18-gauge core needle biopsy specimens were obtained utilizing coaxi al technique. Evaluation of the specimens by pathology indicated glomeruli within the specimen. No additional specimens were obtained at this time. The needle was withdrawn, and hemostasis was achieved with direct pressure. A follow-up CT scan exami [facility] [place] was performed which did not demonstrate a perirenal hematoma or findings to suggest significant hemorrhage. The patient tolerated the procedure well and without immediate complication. The patient was transported to his hospital room in stable condition IMPRESSION: Technically successful CT-guided percutaneous biopsy inferior pole left renal cortex. Glomeruli were noted on provided specimens.
--- NOTE | 2019-08-24 16:01 | PDOC.HOSPP ---
- Subjective Encounter Date: 08/24/19 Encounter Time: 09:00 Subjective: Pt seen for followup re: EDIS. c/o alpa shoulder aches, no other complaints. - Objective Vital Signs & Weight: Vital Signs (12 hours) Temp Pulse Resp BP BP Pulse Ox 08/24/19 11:51 98.0 F 84 18 147/66 H 91 L 08/24/19 09:20 92 L 08/24/19 09:15 73 167/73 H 08/24/19 09:14 73 167/73 H 08/24/19 08:22 97.5 F L 73 18 167/73 H 92 L Weight Weight 154 lb 5.177 oz I&O: 08/23/19 08/24/19 08/25/19 06:59 06:59 06:59 Intake Total 1800 1360 Output Total 1175 300 Balance 625 1060 Result Diagrams: 08/22/19 05:58 08/24/19 06:35 Additional Labs: Accuchecks 08/24/19 08/24/19 08/23/19 11:16 03:50 19:22 POC Glucose 134 H 167 H 145 H 08/23/19 08/23/19 16:10 11:04 POC Glucose 163 H 181 H Labs and MARs reviewed by [place] Hospitalist ROS - Review of Systems Gastrointestinal: denies: nausea, vomiting, abdominal pain, diarrhea, constipation, melena, hematochezia Genitourinary: denies: dysuria, frequency, incontinence, hematuria, retention Musculoskeletal: reports: shoulder pain - Medication Medications: Active Medications Generic Name Dose Route Start Last Admin Trade Name Freq PRN Reason Stop Dose Admin Acetaminophen 1,000 mg 08/22/19 14:01 08/23/19 08:41 Tylenol PO 1,000 mg Q6H PRN Administration Moderate to Severe Pain (6-10) Amlodipine Besylate 10 mg 08/23/19 11:41 08/24/19 09:15 Norvasc PO 10 mg DAILY SVETLANA Administration Clonidine 0.1 mg 08/21/19 13:47 08/22/19 23:39 Catapres PO 0.1 mg Q4H PRN Administration SBP Greater Than 180 Ergocalciferol 1.25 mg 08/23/19 09:00 08/23/19 10:59 Drisdol PO 1.25 mg Q7DAYS SVETLANA Administration Famotidine 20 mg 08/21/19 21:00 08/23/19 20:26 Pepcid SLOW IVP Not Given QPM SVETLANA Famotidine 20 mg 08/21/19 21:00 08/23/19 20:25 Pepcid PO 20 mg QPM SVETLANA Administration Hydralazine HCl 10 mg 08/21/19 13:47 08/22/19 23:40 Apresoline SLOW IVP 10 mg Q4H PRN Administration SBP Greater Than 180 Hydralazine HCl 25 mg 08/22/19 09:00 08/24/19 09:14 Apresoline PO 25 mg TID SVETLANA Administration Ondansetron HCl 4 mg 08/22/19 20:10 08/23/19 08:43 Zofran IVP 4 mg Q6H PRN Administration Nausea/Vomiting Sodium Bicarbonate 650 mg 08/22/19 09:00 08/24/19 09:15 Bicarbonate, Sodium PO 650 mg BID SVETLANA Administration Tamsulosin HCl 0.4 mg 08/21/19 21:00 08/23/19 20:25 Flomax PO 0.4 mg HS SVETLANA Administration Tramadol HCl 50 mg 08/22/19 14:01 08/22/19 23:40 Ultram PO 50 mg Q4H PRN Administration Pain - Exam General Appearance: NAD Eye: anicteric sclera ENT: moist mucosa Neck: supple Heart: RRR Respiratory: CTAB, no rales Gastrointestinal: soft, non-tender Extremities: no cyanosis Skin: no rashes Psychiatric: normal affect, normal behavior Hosp A/P (1) EDIS (acute kidney injury) Code(s): N17.9 - ACUTE KIDNEY FAILURE, UNSPECIFIED Status: Acute (2) DM2 (diabetes mellitus, type 2) Status: Chronic (3) HTN (hypertension) Code(s): I10 - ESSENTIAL (PRIMARY) HYPERTENSION Status: Chronic (4) GERD (gastroesophageal reflux disease) Code(s): K21.9 - GASTRO-ESOPHAGEAL REFLUX DISEASE WITHOUT ESOPHAGITIS Status: Chronic - Plan BP high, increase hydralazine to 50 mg TID. Continue insulin sliding scale. Continue famotidine. Shoulder exam unremarkable Renal biopsy today.
[2019-08-24] MEDS: traMADol HCl 50 MG TAB PO PRN (16:12)
--- NOTE | 2019-08-24 18:21 | PRG ---
DATE OF SERVICE: 08/24/2019 SERVICE: Nephrology. SUBJECTIVE: A 74-year-old male seen in followup for renal failure. The patient is found to have renal failure of unclear etiology as well as nephrotic range proteinuria. No new problem. Denied nausea or vomiting. Oral intake is improved. The patient had a renal biopsy earlier today. Still making some urine. OBJECTIVE: VITAL SIGNS: Temperature 97.7, pulse 85, respiratory rate 20, SpO2 of 93% on room air, and blood pressure is 153/69. GENERAL: Elderly male, in no obvious distress. Afebrile. Anicteric. Acyanotic. HEENT: Normocephalic and atraumatic. Oral mucosa is moist. NECK: Supple with no JVD. CARDIOVASCULAR: Regular rhythm and rate with normal heart sounds 1 and 2. RESPIRATORY: Fair air entry bilaterally with some transmitted breath sounds, but no crackle or rhonchi. GI: Full, soft, nontender, nondistended with normal bowel sounds. EXTREMITIES: Grossly normal looking, atraumatic with no edema or erythema. 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 DIAGNOSTIC DATA: Renal function panel showed sodium of 137, potassium 4.3, chloride 103, CO2 of 23, BUN 66, creatinine 6.91, glucose 122, calcium 8.1, phosphorus 6.8, and albumin 3.0. Complement analysis showed C3 low at 78 while T4 is normal at 19.5. Other serologies are pending as well as electrophoresis and 24-hour urine collection. ASSESSMENT: 1. Renal failure: Acuity is unclear, but clearly component of chronic kidney disease is present given secondary hyperparathyroidism. The patient also has proteinuria. Risk factors include hypertension and diabetes. Of note, renal ultrasound showed normal-sized kidneys. The patient continues to make some urine, and he is euvolemic. 2. Presumed chronic kidney disease. 3. Hypertension: Control is acceptable. 4. Secondary hyperparathyroidism. 5. Anemia in chronic kidney disease. 6. Metabolic acidosis: Improved with alkaline therapy. 7. History of hematuria: Urinalysis performed here was unremarkable. 8. Reported history of bladder mass on ultrasound performed in [place]. Ultrasound performed here as well as MRI were negative for any bladder mass. PLAN: 1. I discussed hemodialysis treatment with the patient and son including PD as well as hemodialysis as well as no treatment at this time with conservative management and followup since the patient is euvolemic with acceptable electrolytes and volume status. The patient and family want to think about the options and get back to me. He already has a tunneled dialysis catheter. I will also get PD advocate to talk with family about the option of peritoneal dialysis. 2. We will await the results of serum protein electrophoresis as well as urine protein electrophoresis, 24-hour urine collection, and renal biopsy. We will recheck renal function test in the morning. 3. Continue vitamin D supplementation. 4. Start the patient on calcitriol. We will also start the patient on phosphate binder given hyperphosphatemia. Job ID: [id number]
[2019-08-24] MEDS: Tamsulosin HCl 0.4 MG CAP PO SCH (20:53)
[2019-08-24] MEDS: Famotidine 20 MG TAB PO SCH (20:53)
[2019-08-24] MEDS: Famotidine/PF 20 mg/2ml Vial SLOW IVP SCH (21:00)
[2019-08-24] MEDS: Acetaminophen 500 MG TAB PO PRN (21:01)
[2019-08-25 00:10] LABS: Creatinine, Urine 95.93 mg/dL (63-166)
[2019-08-25 00:54] LABS: 24 Hr Creatinine 959.3 mg/24 hr (950-2490)
[2019-08-25 06:26] LABS: Albumin 2.4 g/dL (3.4-4.8); Anion Gap 14 mmol/L (10-20); BUN (Urea Nitrogen) 70 mg/dL (8.4-25.7); BUN/Creatinine Ratio 9.36; Calc. Creatinine Clearance 9 mL/min (70-130); Calcium 7.6 mg/dL (7.8-10.44); Carbon Dioxide 25 mmol/L (23-31); Chloride 104 mmol/L (98-107); Estimated GFR-MDRD 7; Glucose 98 mg/dL (83-110); Potassium 4.5 mmol/L (3.5-5.1); Sodium 138 mmol/L (136-145)
[2019-08-25] MEDS: Calcitriol 0.25 MCG CAP PO SCH (08:46)
[2019-08-25] MEDS: hydrALAZINE 25 MG TAB PO SCH ×3 (08:46→21:21)
[2019-08-25] MEDS: Sodium Bicarbonate Tab 325 MG TAB PO SCH ×2 (08:46→21:21)
[2019-08-25] MEDS: Sevelamer Carbonate 800 MG TAB PO SCH ×3 (08:46→17:10)
[2019-08-25] MEDS: Amlodipine 5 MG TAB PO SCH (08:46)
[2019-08-25] MEDS: traMADol HCl 50 MG TAB PO PRN (08:50)
[2019-08-25 10:57] LABS: HBSAB Concentration 1.51 mIU/mL; HBSAg Index 0.28 S/CO (0-0.99); Hep B Core Total Ab Non-Reactive (NonReactive); Hep B Core Total Index 0.13 S/CO (0-0.79); Hep B Surf AB Non-Reactive (NonReactive); Hep B Surf Ag Non-Reactive S/CO (NonReactive); Hep C IgG Ab Non-Reactive (NonReactive); Hep C Index 0.11 S/CO (0-0.79)
[2019-08-25 11:08] LABS: ANA Symphony (Qualitative) Negative (Negative); ANA Symphony (Quantitative) 0.1 Ratio (< 0.7 Negative); dsDNA IgG Antibody 0.8 IU/mL (<10 Negative)
--- NOTE | 2019-08-25 11:31 | PRG ---
DATE OF SERVICE: 08/25/2019 SERVICE: Nephrology. SUBJECTIVE: A 74-year-old man seen in followup for evaluation and treatment of acute renal failure. No new problems. Denied hematuria, nausea, vomiting, or abdominal pain. Had renal biopsy yesterday, results of which is awaited at this time. OBJECTIVE: VITAL SIGNS: Temperature 98.2, pulse 68, respiratory rate 18, SpO2 of 92% on room air, and blood pressure is 156/65. GENERAL: Elderly male, in no distress. Afebrile. Anicteric. Acyanotic. HEENT: Normocephalic and atraumatic. Oral mucosa is moist. NECK: Supple with no JVD. CARDIOVASCULAR: Regular rhythm and rate with normal heart sounds 1 and 2. RESPIRATORY: Fair air entry bilaterally with no obvious crackle or rhonchi or use of accessory muscles. GI: Full, soft, nontender, and nondistended with normal bowel sounds. EXTREMITIES: Grossly normal looking with no edema or erythema. 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 DIAGNOSTIC DATA: Renal function panel showed sodium 133, potassium 4.5, chloride 104, CO2 of 25, BUN 70, creatinine 7.48, glucose 98, calcium 7.6, phosphorus 7.0, and albumin 2.4. A 24-hour urine collection showed total protein of 11,090, total 24-hour urine creatinine was 959.3. ASSESSMENT: 1. Renal failure of unclear etiology. Azotemia continued to worsen. 2. Presume chronic kidney disease given secondary hyperparathyroidism and hyperphosphatemia. 3. Anemia in chronic kidney disease. 4. Metabolic acidosis due to chronic kidney disease. 5. Hyperphosphatemia. 6. Secondary hyperparathyroidism. 7. Vitamin D deficiency. 8. Nephrotic range proteinuria of unclear etiology. DISCUSSION/PLAN: 1. I had extensive discussion again with family about renal replacement therapy while we wait for further evaluation. The patient and family elected to peritoneal dialysis. I will consult General Surgery to put in a PD catheter and the patient can be discharged subsequently after PD catheter to commence training and treatment. Renal biopsy as well as other serologies are awaited at this time. 2. Hypertension: Control is acceptable. 3. Diabetes mellitus, glycemic control is acceptable. 4. We get repeat BMP in the morning. Further treatment to follow depending on hospital course. Case management has been consulted to help with outpatient PD arrangement. Job ID: [id number]
--- NOTE | 2019-08-25 12:57 | PDOC.HOSPP ---
- Subjective Encounter Date: 08/25/19 Encounter Time: 08:20 Subjective: Pt seen for followup re; EDIS. feels better, no complaints. - Objective Vital Signs & Weight: Vital Signs (12 hours) Temp Pulse Resp BP BP Pulse Ox 08/25/19 08:00 92 L 08/25/19 07:22 98.2 F 68 18 156/65 H 92 L 08/25/19 04:25 98.0 F 72 18 145/67 H 93 L Weight Weight 154 lb 5.177 oz I&O: 08/24/19 08/25/19 08/26/19 06:59 06:59 06:59 Intake Total 1360 630 Output Total 300 Balance 1060 630 Result Diagrams: 08/22/19 05:58 08/25/19 05:40 Additional Labs: Accuchecks 08/25/19 08/25/19 08/24/19 11:34 04:25 19:32 POC Glucose 202 H 102 197 H 08/24/19 16:43 POC Glucose 149 H labs and MARs reviewed by [place] Hospitalist ROS - Review of Systems Gastrointestinal: denies: nausea, vomiting, abdominal pain, diarrhea, constipation, melena, hematochezia Genitourinary: denies: dysuria, frequency, incontinence, hematuria, retention - Medication Medications: Active Medications Generic Name Dose Route Start Last Admin Trade Name Freq PRN Reason Stop Dose Admin Acetaminophen 1,000 mg 08/22/19 14:01 08/24/19 21:01 Tylenol PO 1,000 mg Q6H PRN Administration Moderate to Severe Pain (6-10) Amlodipine Besylate 10 mg 08/23/19 11:41 08/25/19 08:46 Norvasc PO 10 mg DAILY SVETLANA Administration Calcitriol 0.25 mcg 08/25/19 09:00 08/25/19 08:46 Rocaltrol PO 0.25 mcg DAILY SVETLANA Administration Clonidine 0.1 mg 08/21/19 13:47 08/22/19 23:39 Catapres PO 0.1 mg Q4H PRN Administration SBP Greater Than 180 Ergocalciferol 1.25 mg 08/23/19 09:00 08/23/19 10:59 Drisdol PO 1.25 mg Q7DAYS SVETLANA Administration Famotidine 20 mg 08/21/19 21:00 08/24/19 21:00 Pepcid SLOW IVP Not Given QPM SVETLANA Famotidine 20 mg 08/21/19 21:00 08/24/19 20:53 Pepcid PO 20 mg QPM SVETLANA Administration Hydralazine HCl 10 mg 08/21/19 13:47 08/22/19 23:40 Apresoline SLOW IVP 10 mg Q4H PRN Administration SBP Greater Than 180 Hydralazine HCl 50 mg 08/24/19 21:00 08/25/19 08:46 Apresoline PO 50 mg TID SVETLANA Administration Insulin Human Regular 0 units 08/21/19 15:48 08/25/19 11:58 Humulin R SC 3 unit .MILD SLIDING SCALE PRN Administration Mild Correctional Scale Ondansetron HCl 4 mg 08/22/19 20:10 08/24/19 16:15 Zofran Odt PO 4 mg Q6H PRN Administration Nausea/Vomiting Ondansetron HCl 4 mg 08/22/19 20:10 08/23/19 08:43 Zofran IVP 4 mg Q6H PRN Administration Nausea/Vomiting Sevelamer Carbonate 800 mg 08/25/19 08:00 08/25/19 11:57 Renvela PO 800 mg TID-WM SVETLANA Administration Sodium Bicarbonate 650 mg 08/22/19 09:00 08/25/19 08:46 Bicarbonate, Sodium PO 650 mg BID SVETLANA Administration Tamsulosin HCl 0.4 mg 08/21/19 21:00 08/24/19 20:53 Flomax PO 0.4 mg HS SVETLANA Administration Tramadol HCl 50 mg 08/22/19 14:01 08/25/19 08:50 Ultram PO 50 mg Q4H PRN Administration Pain - Exam General Appearance: NAD Eye: anicteric sclera ENT: moist mucosa Neck: supple Heart: RRR Respiratory: CTAB Gastrointestinal: soft, normal bowel sounds Extremities: no cyanosis Skin: no rashes Psychiatric: normal affect, normal behavior Hosp A/P (1) EDIS (acute kidney injury) Code(s): N17.9 - ACUTE KIDNEY FAILURE, UNSPECIFIED Status: Acute (2) DM2 (diabetes mellitus, type 2) Status: Chronic (3) HTN (hypertension) Code(s): I10 - ESSENTIAL (PRIMARY) HYPERTENSION Status: Chronic (4) GERD (gastroesophageal reflux disease) Code(s): K21.9 - GASTRO-ESOPHAGEAL REFLUX DISEASE WITHOUT ESOPHAGITIS Status: Chronic - Plan out of bed/ambulate HTN improved Continue insulin sliding scale and accuchecks. Pt to start peritoneal dialysis as outpatient.
[2019-08-25 13:11] LABS: A/G Ratio 0.8 (0.7-1.7); Albumin 2.3 g/dL (2.9-4.4); Alpha 1 0.2 g/dL (0.0-0.4); Alpha 2 0.8 g/dL (0.4-1.0); Beta 0.7 g/dL (0.7-1.3); Gamma 1.1 g/dL (0.4-1.8); Globulin, Total 2.9 g/dL (2.2-3.9); M-Spike Note: g/dL (Not Observed)
--- NOTE | 2019-08-25 18:31 | PDOC.GSPN ---
Surgery Progress Note: Subj - Subjective Narrative: Patient seen previously by Dr. Delarosa for hemodialysis access. He has a right internal jugular dialysis catheter in place as well as a left internal jugular central venous catheter for IV access. However, the patient has decided that he does not want to proceed with hemodialysis, and would rather do peritoneal dialysis. Dr. Delarosa is out of town this week and the patient's chain mortiser operator has asked me to place a peritoneal dialysis catheter before the patient's discharge from the hospital. Past history is reviewed. He has not had any previous surgeries on his abdomen. On examination his heart is regular, his lungs are clear, his abdomen is soft nontender nondistended. I do not feel any umbilical or inguinal hernias on exam. Using a Brazilian language arts teacher I discussed the procedure and its inherent risks with the patient. These risks include but are not limited to bleeding, infection, risks of anesthesia, damage to internal structures such as bowel bladder and blood vessels, failure of the catheter to function, peritonitis and need for removal of the catheter. I discussed the importance of strict hygiene and sterile technique, as well as the need to manage his own dialysis daily. He expressed understanding and wants to proceed. All of his questions were answered. His family was at the bedside and participated in the conversation as well. He is on the schedule for tomorrow. Surgery Progress Note: Obj - Vital signs Vital signs: Vital Signs - Most Recent Temp Pulse Resp BP Pulse Ox 98.2 F 68 18 156/65 H 92 L 08/25/19 07:22 08/25/19 17:10 08/25/19 07:22 08/25/19 07:22 08/25/19 08:00 Surgery Progress Note: Results - Labs Result Diagrams: 08/22/19 05:58 08/25/19 05:40 Lab results: Laboratory Results - last 24 hr 08/23/19 08/23/19 08/25/19 09:34 09:35 10:01 POC Glucose Globulin 2.9 Albumin/Globulin Ratio 0.8 Xzyid-6-Vmrydgeno 0.2 Zephm-1-Xgjhnhbol 0.8 Beta Globulins 0.7 Gamma Globulins 1.1 M-Trevin Note: PEP Note PEP Interpretation Total Protein (KATE) 5.2 L Albumin (KATE) 2.3 L AZAM Screen Negative AZAM Scrn Qualitative Negative AZAM Scrn Quantitative 0.1 AZAM & Anti-HELENE New Method NEW METHOD Anti-ds DNA IgG Ab 0.8 Anti-ds DNA Interp Hep Bs Antigen Non-Reactive Hep Bs Antibody Non-Reactive Hep Bs Antibody Index 1.51 Hep B Core Total Ab Non-Reactive Hepatitis C Antibody Non-Reactive 08/25/19 08/25/19 11:34 15:45 POC Glucose 202 H 126 H Globulin Albumin/Globulin Ratio Wqutn-4-Ydgznmavs Vorcw-3-Hkzkylmtt Beta Globulins Gamma Globulins M-Trevin PEP Note PEP Interpretation Total Protein (KATE) Albumin (KATE) AZAM Screen AZAM Scrn Qualitative AZAM Scrn Quantitative AZAM & Anti-HELENE New Method Anti-ds DNA IgG Ab Anti-ds DNA Interp Hep Bs Antigen Hep Bs Antibody Hep Bs Antibody Index Hep B Core Total Ab Hepatitis C Antibody
[2019-08-25] MEDS ORDERED: CEFAZOLIN 2 GM in Premix Bag 1 BAG IVPB SCH (18:45)
[2019-08-25] MEDS: Tamsulosin HCl 0.4 MG CAP PO SCH (21:21)
[2019-08-25] MEDS: Famotidine/PF 20 mg/2ml Vial SLOW IVP SCH (21:22)
[2019-08-25] MEDS: Famotidine 20 MG TAB PO SCH (21:22)
--- NOTE | 2019-08-26 00:30 | CON ---
DATE OF CONSULTATION: 08/25/2019 CONSULTING PHYSICIAN: Baljeet Ruiz. CONSULTED: Dr. Phillips. REASON FOR CONSULTATION: Dysuria. HISTORY OF PRESENT ILLNESS: Mr. Guerrero is a 74-year-old male, who was admitted to the hospital with issues of an acute kidney injury as well as complaints of dysuria for about a week. His urine was dark at the time and he was found to have a significantly elevated creatinine of approximately 6. During the course of his hospitalization, he has ultimately ended up on dialysis as his kidney function has not improved. He has undergone a renal biopsy. During this time, he states his urination has cleared up. He is no longer having any dysuria. His urine stream is good. He reports no difficulty with urination. He reports no bleeding or history of urinary infections. Of note, the patient did go to [place] where he is from and apparently had some kind of imaging test or procedure of a cystoscopy there, where he was told that he had a bladder mass or bladder cancer. The family states that they were not exactly sure if it was in the bladder or on the testicles, but they think it was on the bladder. The patient underwent an abdominal and pelvic MRI while here in the hospital, which demonstrated no evidence of bladder mass on pelvic MRI, although no contrast was used. Abdominal MRI without contrast showed no obstructive etiologies on the kidneys and no masses on the kidneys. On my discussion with the patient, he reports that he is feeling fine currently. He has no reported problems. Again, his dysuria has resolved and again the family is very unclear about the exact nature of any potential tumors or problems that he has had on his testicles or on his bladder. ALLERGIES: NONE. HOME MEDICATIONS: Insulin. PAST MEDICAL HISTORY: 1. Type 2 diabetes. 2. Hypertension. 3. Gastroesophageal reflux disease. PAST SURGICAL HISTORY: Cataract surgery. FAMILY HISTORY: Significant for diabetes. He does have a brother on dialysis. SOCIAL HISTORY: The patient is a former smoker, but he quit. He drinks alcohol only socially. He denies any illicit drug use. He lives in an apartment in [place]. REVIEW OF SYSTEMS: A 12-point review of system was reviewed with the patient and found to be negative. PHYSICAL EXAMINATION: VITAL SIGNS: Temperature 98.2, pulse 68, respirations 18, blood pressure 156/65, saturation 92% on room air. GENERAL: No apparent distress. Communicative and alert, answering questions appropriately. Well nourished, well developed. HEENT: Normocephalic, atraumatic. Pupils are symmetric and round. Trachea midline. Poor dentition. CARDIOVASCULAR: Regular rate and rhythm. Normal S1, S2. Symmetric pulses. CHEST: No increased work of breathing. Symmetric expansion. LUNGS: Clear anteriorly. ABDOMEN: Soft, nontender, and nondistended. Positive bowel sounds. No organomegaly or masses. No hernias. No suprapubic tenderness. : The patient's penis is nonfocal. The patient is uncircumcised without masses or lesions. Testes are bilaterally descended, smooth without masses or tenderness. No obvious abnormalities. RECTAL: Deferred at this time. EXTREMITIES: No clubbing, cyanosis, or edema. SKIN: Warm and dry. No rashes or lesions. Good turgor. MUSCULOSKELETAL: No joint deformities or joint erythema noted. Full range of motion. LYMPH NODES: There are no palpable lymph nodes in the neck or inguinal region or axillary regions. PSYCHIATRIC: Alert and oriented x3. Appropriate mood and affect. LABORATORY EVALUATIONS: Reviewed by me in the [facility] system. Of note, the patient's white count is 5.5, with hemoglobin 9.1. Creatinine is currently 7.48, with a blood sugar of 126. Biopsy of the kidney is currently pending. Imaging was reviewed as dictated above in the HPI. ASSESSMENT AND PLAN: A 74-year-old male with previously reported dysuria, which has now resolved. The patient is on hemodialysis currently and it is unclear whether or not he will ever regain his renal function. From a standpoint of this questionable testicular versus bladder cancer, the patient has no evidence of any testicular abnormalities on exam. I do not think that he will require any further workup of testicular examination. The patient is well outside of the range of what is expected for testicular cancer. The patient has no reported hematuria and apparently was told that he had some kind of problem within his bladder. Since there was a significant amount of confusion, I would recommend an outpatient cystoscopy. The cystoscope used at bedside in the hospital is currently broken, so bedside cystoscopy will probably not be possible. Even if so, the light source is quite poor and outpatient cystoscopy is going to be much more successful at diagnosing any potential problems without missing potentially important bladder tumor. I have given the son my card and the patient should follow up with me as an outpatient after he is discharged for outpatient cystoscopy. We can then do further workup at that time. Generally, PSA screening is not indicated in someone who is on hemodialysis beyond the age of 70, as his life expectancy would not be within the range of where prostate cancer treatment would be beneficial for this patient. I will go ahead and sign off as there is nothing further to do on this hospital admission. Again, patient should just follow up with me on an outpatient basis. Job ID: [id number]
[2019-08-26 05:57] LABS: Albumin 2.5 g/dL (3.4-4.8); Anion Gap 13 mmol/L (10-20); BUN (Urea Nitrogen) 74 mg/dL (8.4-25.7); BUN/Creatinine Ratio 9.28; Calc. Creatinine Clearance 8 mL/min (70-130); Calcium 7.7 mg/dL (7.8-10.44); Carbon Dioxide 23 mmol/L (23-31); Chloride 105 mmol/L (98-107); Estimated GFR-MDRD 7; Glucose 89 mg/dL (83-110); Phosphorus 7.4 mg/dL (2.3-4.7); Potassium 4.4 mmol/L (3.5-5.1); Sodium 137 mmol/L (136-145)
[2019-08-26] MEDS: Sevelamer Carbonate 800 MG TAB PO SCH ×3 (09:07→18:34)
[2019-08-26] MEDS: Calcitriol 0.25 MCG CAP PO SCH (09:07)
[2019-08-26] MEDS ORDERED: PHENYLEPHRINE-NS 100 MCG/ML 10 ML SYRINGE ONE (09:55)
[2019-08-26] MEDS ORDERED: ePHEDrine/0.9% NaCl/PF SYRINGE 50 mg/10 ml ONE (09:55)
[2019-08-26] MEDS ORDERED: Lidocaine 1% PF 5 ML VIAL ONE (09:55)
[2019-08-26] MEDS ORDERED: Rocuronium Bromide 10 MG/ML (10ML VIAL) ONE (09:55)
[2019-08-26] MEDS ORDERED: Ondansetron PF 4 MG/2 ML Vial ONE (09:55)
[2019-08-26] MEDS ORDERED: PROPOFOL 200 MG/20 ML VIAL ONE (09:55)
--- NOTE | 2019-08-26 10:44 | PRG ---
DATE OF SERVICE: 08/26/2019 SERVICE: Nephrology. SUBJECTIVE: A 74-year-old male, seen in followup for renal failure. The patient and family report tremor of the hands. The patient, however, denied nausea, vomiting, abdominal pain, or shortness of breath. He is awaiting call from OR for PD catheter placement. OBJECTIVE: VITAL SIGNS: Temperature 97.9, pulse 78, respiratory rate 20, SpO2 of 95% on room air, blood pressure 161/69. GENERAL: Comfortable elderly male, in no distress. Afebrile. Anicteric. Acyanotic. HEENT: Normocephalic and atraumatic. Oral mucosa is moist. CARDIOVASCULAR: Regular rhythm and rate with normal heart sounds 1 and 2. RESPIRATORY: Fair air entry bilaterally with few transmitted breath sounds. No obvious crackle or rhonchi or use of accessory muscles. GI: Full, soft, nontender, nondistended with normal bowel sounds. EXTREMITIES: Grossly normal looking, atraumatic, with no edema or erythema. FIRST OFFICER: Conscious, alert, oriented x3 with appropriate mental status. Cranial nerves 2 through 12 are grossly intact. Mild tremor of the hands noted. No focal deficit. Cranial nerves 2 through 12 are grossly intact. DIAGNOSTIC DATA: Renal function panel showed sodium 137, potassium 4.4, chloride 105, CO2 of 23, BUN 74, creatinine 7.97, glucose 89, calcium 7.7, phosphorus 7.4, albumin 2.5. Hepatitis panel is unremarkable. AZAM also is unremarkable. Biopsy and protein electrophoresis are pending at this time. ASSESSMENT: 1. Presumed acute on chronic renal failure of unclear etiology. Biopsy is pending at this time. 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 3. Hypertension. Control is suboptimal still. 4. Hyperphosphatasemia. 5. Vitamin D deficiency. 6. Secondary hyperparathyroidism. 7. Anemia in chronic kidney disease. PLAN: 1. We will substitute amlodipine with nifedipine and titrate dose to get adequate BP control. 2. We will observe the patient on Renvela which was started yesterday and titrate dose upwards to get adequate optimal phosphorus level. 3. The patient is for PD catheter placement later today. Once outpatient dialysis placement is concluded and the surgeon is okay for discharge, the patient could be discharged home possibly today. 4. We will follow up on pending labs. Further treatment to follow depending on hospital course. Job ID: [id number]
[2019-08-26] MEDS ORDERED: Bupivacaine 0.25% HCL 30 ML VIAL ONE (11:42)
[2019-08-26] MEDS ORDERED: Heparin 10,000 UNITS/1 ML VIAL ONE (11:42)
[2019-08-26] MEDS ORDERED: EPINEPHrine 1 MG/ML AMP ONE (11:43)
[2019-08-26] MEDS ORDERED: SUGAMMADEX SODIUM 200 MG/2 ML VIAL ONE (12:45)
[2019-08-26] MEDS ORDERED: SUGAMMADEX SODIUM 500 MG/5 ML VIAL ONE (12:46)
[2019-08-26] MEDS ORDERED: Fentanyl 100 MCG/2 ML VIAL ONE (12:49)
[2019-08-26] MEDS ORDERED: HYDROmorphone 0.5 MG/0.5 ML SYRINGE ONE (12:49)
[2019-08-26] MEDS: hydrALAZINE 25 MG TAB PO SCH ×3 (13:39→20:50)
[2019-08-26] MEDS: Sodium Bicarbonate Tab 325 MG TAB PO SCH ×2 (13:39→20:50)
--- NOTE | 2019-08-26 14:15 | PDOC.OP ---
Operative Note - Operative Note Operative Note: PROCEDURE: Laparoscopic peritoneal dialysis catheter placement SURGEON: Mekhi Fernandez M.D. DATE OF PROCEDURE:08/26/2019 PREOPERATIVE DIAGNOSIS: Renal failure POSTOPERATIVE DIAGNOSIS: Renal failure HISTORY: Patient with renal failure and need for dialysis access. Peritoneal dialysis has been selected as the modality of choice and a laparoscopic peritoneal dialysis catheter placement has been requested. PROCEDURE IN DETAIL: After informed consent was obtained and appropriate preoperative antibiotic were administered the patient was taken to the operating room, placed in supine position and general endotracheal anesthesia was administered. The abdomen was sterilely prepped and draped and local anesthesia infused at the level of the umbilicus. A transverse skin incision was made and the fascia was elevated. A Veress needle was placed into the abdominal cavity without difficulty and carbon dioxide gas insufflated to an intra-abdominal pressure 15 which the patient tolerated well. There is needle was withdrawn and a [place] port advanced under direct laparoscopic vision into the abdominal cavity which was carefully examined. There was no evidence of Veress needle or trocar injury. There were no significant adhesions. A 5 mm trocar was placed in the lateral upper abdomen and the patient was placed in Trendelenburg. The small bowel was easily drawn up out of the pelvis and no adhesions seen in this area. The bottom of the posterior rectus sheath was identified. Local anesthesia was infused to the skin and subcutaneous tissues overlying and lateral to this area. A skin incision was made and an 8 mm trocar tunneled superiorly medially and then inferiorly through the rectus sheath entering the abdominal cavity just above the inferior edge of the rectus sheath. The peritoneal dialysis catheter was placed through the trocar and held in place positioning the inner cuff within the rectus muscle. The trocar was withdrawn and the end of the peritoneal dialysis catheter placed into the pelvis. Saline was infused and drained easily out of the peritoneal cavity through the cuffed tunneled dialysis catheter. The camera was moved to the upper abdominal trocar site and the umbilical trocar removed. The fascia was bridged with a 0 Vicryl suture on a GraNee needle and the sutures secured not tied down. The trocar was replaced through the same defect and the camera moved back to the umbilical location. The upper abdominal trocar was removed and a 0 Vicryl suture on a GraNee needle used to close the fascial defect. Carbon dioxide gas was allowed to desufflate through the umbilical trocar which was then removed and the fascia closed with the pre-existing suture. The second cuff of the peritoneal dialysis catheter was positioned within the subcutaneous tissues and the skin incision at the exit site closed in 2 layers with 4-0 Monocryl suture. The other skin incisions were closed with subcuticular 4-0 Monocryl suture as well. Dermabond dressings were placed and allowed to dry. Heparin flush was infused through the peritoneal dialysis catheter which was then capped and clamped. Once the Dermabond was dry the PD exit site was dressed with gauze and Tegaderm. The patient was extubated and taken to the recovery room in good condition. Estimated blood loss was minimal. There were no complications. There were no specimens.
[2019-08-26] MEDS ORDERED: HYDROcodone/Acetaminophen 5/325 mg Tablet PO PRN ×2 (14:17)
[2019-08-26] MEDS ORDERED: Acetaminophen 325 MG TAB PO PRN (14:18)
[2019-08-26] MEDS ORDERED: Promethazine 25 MG TAB PO PRN (14:19)
[2019-08-26] MEDS: Carvedilol 3.125 MG TAB PO SCH (16:26)
--- NOTE | 2019-08-26 18:13 | PDOC.HOSPP ---
- Subjective Encounter Date: 08/26/19 Encounter Time: 18:11 Subjective: Pt seen for followup re: acute renal failure. Sleepy but arousable, no complaints. - Objective Vital Signs & Weight: Vital Signs (12 hours) Temp Pulse Resp BP BP Pulse Ox 08/26/19 16:26 78 08/26/19 15:26 88 156/71 H 94 L 08/26/19 15:00 87 154/66 H 94 L 08/26/19 14:57 90 147/69 H 95 08/26/19 14:26 92 155/67 H 95 08/26/19 13:55 97.4 F L 93 18 170/68 H 96 08/26/19 08:00 95 08/26/19 07:24 97.9 F 78 20 161/69 H 95 Weight Weight 154 lb 5.177 oz I&O: 08/25/19 08/26/19 08/27/19 06:59 06:59 06:59 Intake Total 630 1290 Balance 630 1290 Result Diagrams: 08/22/19 05:58 08/26/19 05:13 Additional Labs: Accuchecks 08/26/19 08/26/19 08/26/19 15:49 14:19 03:57 POC Glucose 156 H 154 H 103 08/25/19 20:27 POC Glucose 187 H Labs and MARs reviewed by dc Hospitalist ROS - Review of Systems Gastrointestinal: denies: nausea, vomiting, abdominal pain, diarrhea, constipation, melena, hematochezia Genitourinary: denies: dysuria, frequency, incontinence, hematuria, retention - Medication Medications: Active Medications Generic Name Dose Route Start Last Admin Trade Name Peeq PRN Reason Stop Dose Admin Acetaminophen 1,000 mg 08/22/19 14:01 08/24/19 21:01 Tylenol PO 1,000 mg Q6H PRN Administration Moderate to Severe Pain (6-10) Hydrocodone Bitart/Acetaminophen 2 tab 08/26/19 14:17 08/26/19 16:26 [place] 5/325 PO 2 tab Q4H PRN Administration PAIN SCALE 7-10 Calcitriol 0.25 mcg 08/25/19 09:00 08/26/19 09:07 Rocaltrol PO Not Given DAILY SVETLANA Carvedilol 3.125 mg 08/26/19 17:00 08/26/19 16:26 Coreg PO 3.125 mg BID-WM SVETLANA Administration Clonidine 0.1 mg 08/21/19 13:47 08/22/19 23:39 Catapres PO 0.1 mg Q4H PRN Administration SBP Greater Than 180 Ergocalciferol 1.25 mg 08/23/19 09:00 08/23/19 10:59 Drisdol PO 1.25 mg Q7DAYS SVETLANA Administration Famotidine 20 mg 08/21/19 21:00 08/25/19 21:22 Pepcid SLOW IVP Not Given QPM SVETLANA Famotidine 20 mg 08/21/19 21:00 08/25/19 21:22 Pepcid PO 20 mg QPM SVETLANA Administration Hydralazine HCl 10 mg 08/21/19 13:47 08/22/19 23:40 Apresoline SLOW IVP 10 mg Q4H PRN Administration SBP Greater Than 180 Hydralazine HCl 50 mg 08/24/19 21:00 08/26/19 16:26 Apresoline PO 50 mg TID SVETLANA Administration Insulin Human Regular 0 units 08/21/19 15:48 08/25/19 11:58 Humulin R SC 3 unit .MILD SLIDING SCALE PRN Administration Mild Correctional Scale Ondansetron HCl 4 mg 08/22/19 20:10 08/24/19 16:15 Zofran Odt PO 4 mg Q6H PRN Administration Nausea/Vomiting Ondansetron HCl 4 mg 08/22/19 20:10 08/23/19 08:43 Zofran IVP 4 mg Q6H PRN Administration Nausea/Vomiting Sevelamer Carbonate 800 mg 08/25/19 08:00 08/26/19 13:39 Renvela PO Not Given TID-WM [facility] Sodium Bicarbonate 650 mg 08/22/19 09:00 08/26/19 13:39 Bicarbonate, Sodium PO Not Given BID SVETLANA Tamsulosin HCl 0.4 mg 08/21/19 21:00 08/25/19 21:21 Flomax PO 0.4 mg HS SVETLANA Administration Tramadol HCl 50 mg 08/22/19 14:01 08/25/19 08:50 Ultram PO 50 mg Q4H PRN Administration Pain - Exam General Appearance: NAD Eye: anicteric sclera ENT: no oropharyngeal lesions, moist mucosa Neck: supple, symmetric Heart: RRR Respiratory: CTAB Gastrointestinal: soft Gastrointestinal - other findings: PD catheter Extremities: no clubbing Musculoskeletal: no muscle wasting Psychiatric: lethargic Hosp A/P (1) EDIS (acute kidney injury) Code(s): N17.9 - ACUTE KIDNEY FAILURE, UNSPECIFIED Status: Acute (2) DM2 (diabetes mellitus, type 2) Status: Chronic (3) HTN (hypertension) Code(s): I10 - ESSENTIAL (PRIMARY) HYPERTENSION Status: Chronic (4) GERD (gastroesophageal reflux disease) Code(s): K21.9 - GASTRO-ESOPHAGEAL REFLUX DISEASE WITHOUT ESOPHAGITIS Status: Chronic - Plan HTN improved s/p PD catheter placement today. Pt to start PD as outpatient. Discharge held due to lethargy, will reassess tomorrow.
[2019-08-26] MEDS: Acetaminophen 325 MG TAB PO PRN (20:49)
[2019-08-26] MEDS: Famotidine/PF 20 mg/2ml Vial SLOW IVP SCH (20:50)
[2019-08-26] MEDS: Famotidine 20 MG TAB PO SCH (20:50)
[2019-08-26] MEDS: Tamsulosin HCl 0.4 MG CAP PO SCH (20:50)
[2019-08-27] MEDS: cloNIDine 0.1 MG TAB PO PRN (05:13)
[2019-08-27 05:33] LABS: Hemoglobin 8.4 g/dL (14.0-18.0); Mean Corpuscular HGB CONC 33.6 g/dL (32.0-36.0); Mean Corpuscular Hemoglobin 30.3 pg (27.0-31.0); Mean Corpuscular Volume 90.1 fL (78.0-98.0); Mean Platelet Volume 7.7 fL (7.4-10.4); Platelet Count 180 thou/uL (130-400); RBC Distribution Width 12.4 % (11.5-14.5); Red Blood Cell (RBC) Count 2.78 mill/uL (4.70-6.10); White Blood Cell (WBC) Count 8.4 thou/uL (4.8-10.8)
[2019-08-27 05:52] LABS: Albumin 2.6 g/dL (3.4-4.8); Anion Gap 16 mmol/L (10-20); BUN (Urea Nitrogen) 73 mg/dL (8.4-25.7); BUN/Creatinine Ratio 9.15; Calc. Creatinine Clearance 8 mL/min (70-130); Carbon Dioxide 23 mmol/L (23-31); Chloride 106 mmol/L (98-107); Estimated GFR-MDRD 7; Glucose 89 mg/dL (83-110); Phosphorus 7.9 mg/dL (2.3-4.7); Potassium 4.6 mmol/L (3.5-5.1); Sodium 140 mmol/L (136-145)
[2019-08-27] MEDS: Amlodipine 5 MG TAB PO SCH (06:58)
[2019-08-27 07:22] VITALS: BP 168/71; TEMP 98
[2019-08-27] MEDS: Sevelamer Carbonate 800 MG TAB PO SCH (08:33)
[2019-08-27] MEDS: hydrALAZINE 25 MG TAB PO SCH (08:34)
[2019-08-27] MEDS: Calcitriol 0.25 MCG CAP PO SCH (08:35)
[2019-08-27] MEDS: Carvedilol 3.125 MG TAB PO SCH (08:35)
[2019-08-27] MEDS: Acetaminophen 325 MG TAB PO PRN (08:35)
[2019-08-27] MEDS ORDERED: NIFEdipine XL 60 MG TAB PO SCH (09:00)
[2019-08-27 10:11] LABS: Kappa/Lambda Ratio 7.88 (1.03-31.76)
--- NOTE | 2019-08-27 10:12 | DIS ---
DATE OF ADMISSION: 08/21/2019 DATE OF DISCHARGE: 08/27/2019 PRIMARY CARE PROVIDER: [facility]. DISCHARGE DIAGNOSES: 1. Acute kidney injury. 2. Hypertensive urgency. 3. Hyponatremia. CONDITION OF PATIENT ON THE DAY OF DISCHARGE: Stable. I assessed Mr. Guerrero on the day of discharge. He denies any chest pain or shortness of breath. Vital signs are stable. S1 and S2 are heard, regular. Lungs are clear to auscultation bilaterally. CONSULTATIONS DURING THIS HOSPITALIZATION: 1. Nephrology, Dr. Adams. 2. General Surgery, Dr. Delarosa. 3. Urology, Dr. Phillips. HOSPITAL COURSE: Mr. Guerrero is a pleasant 74-year-old gentleman, who was admitted to [facility] on 08/21/2019, for acute kidney injury. Please refer to Dr. Brand's history and physical note dated 08/21/2019, for further details. There was also concern regarding bladder tumor which was reportedly diagnosed in [place]. He had MRI of the abdomen and pelvis. He had bilateral relatively simple appearing renal cysts. There was no evidence for obstructive uropathy. There was minimal trabecular thickening of the urinary bladder and no large mass was appreciated. He also underwent percutaneous renal biopsy. At the time of this dictation, the result is pending. He has been advised to follow up with Nephrology Service for the report. He was also seen by Urology Service and advised cystoscopy on an outpatient basis. The patient underwent right internal jugular cuffed tunneled dialysis catheter placement and a left internal jugular central line on 08/21/2019. However, after extensive discussions with the team, the patient opted for peritoneal dialysis. He had peritoneal dialysis catheter placed on 08/26/2019. On the day of discharge, he has normal sodium, normal potassium, elevated blood urea nitrogen of 74, elevated creatinine of 7.97, and decreased albumin of 2.5. Arrangements are made for peritoneal dialysis starting 7:30 am on 08/27/2019. Please note that his Lantus insulin was discontinued during this hospitalization. He has been advised to check his blood sugars 3 times a day and show the readings to primary care provider so that his insulin can be managed. He was also in hypertensive urgency. He has been advised to check his blood pressure and heart rate 3 times a day and show the readings to primary care provider. POST ACUTE CARE FOLLOWUP: With primary care provider in 3 days; with General surgery, Dr. Delarosa in 3 to 4 weeks; with Nephrology Service, Dr. Adams in 1 week, and with Urology Service Dr. Phillips in 2 weeks. DISCHARGE MEDICATIONS: 1. Phenergan 12.5 mg every 4 hours as needed. 2. Ergocalciferol 1.25 mg every week. 3. Calcitriol 0.25 mcg daily. 4. Coreg 3.125 mg 2 times a day. 5. [place] 5/325 mg 1-2 tablets as needed. 6. Procardia XL 60 mg daily. 7. Renvela 800 mg 3 times a day. 8. Flomax 0.4 mg at bedtime. DISCHARGE DESTINATION: Home. TIME SPENT: Total amount of time spent coordinating this discharge: 32 minutes. Job ID: [id number]
--- NOTE | 2019-08-27 10:52 | PRG ---
DATE OF SERVICE: 08/27/2019 SERVICE: Nephrology. SUBJECTIVE: A 74-year-old male, being followed up for acute on chronic renal failure, now end-stage renal disease. The patient had PD catheter placement yesterday. He was supposed to be discharged, but due to decreased responsiveness, most likely due to anesthetics, discharge was put off. No new problem. Awake and conversational and desires to be discharged. PHYSICAL EXAMINATION: VITAL SIGNS: Temperature 98.0, pulse 60, respiratory rate 20, SpO2 of 93 on room air, blood pressure is 168/71. GENERAL: Elderly male, in no distress. Afebrile, anicteric, acyanotic. HEENT: Normocephalic and atraumatic. Oral mucosa is moist. CARDIOVASCULAR: Regular rhythm and rate with normal heart sounds 1 and 2. RESPIRATORY: Good air entry bilaterally with no obvious crackle or rhonchi or use of accessory muscles. GI: Full, soft, nontender, nondistended with normal bowel sounds. EXTREMITIES: Grossly normal looking, atraumatic, with no obvious edema or erythema. TECHNICAL LABORATORY ASST: Conscious, alert, oriented x3 with appropriate mental status. Cranial nerves 2 through 12 are grossly intact. DIAGNOSTIC DATA: CBC showed WBC count of 8.4, hemoglobin of 8.4, MCV of 90.1, platelets of 180. Renal function panel showed sodium of 140, potassium 4.6, chloride 106, CO2 of 23, BUN 73, creatinine 7.98, glucose 89, calcium 8.0, phosphorus 7.9, albumin 2.6. ASSESSMENT: 1. Acute on chronic renal failure, now end-stage renal disease. This is due to hypertension and diabetes. 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 2. Hypertension: Control is better with transition to nifedipine from amlodipine. 3. Nephrotic range proteinuria. 4. Hyperphosphatemia. 5. Anemia in chronic kidney disease. 6. Metabolic acidosis. 7. Secondary hyperparathyroidism. 8. Vitamin D deficiency. PLAN: 1. Continue current antihypertensives. 2. Continue phosphate binder. 3. We will follow up the patient in the dialysis unit. We will commence IV iron and erythrocyte stimulating agent. 4. Further treatment as per primary attending. 5. The patient can be discharged from Nephrology point of view to continue outpatient peritoneal dialysis as scheduled. All questions were answered, and the patient and family verbalized understanding. Job ID: [id number]
[2019-08-27 13:11] LABS: Alpha-1-Globulin, PEP 24h Ur 9.1 % (NOT ESTAB.); Alpha-2-Globulin, PEP 24h Ur 10.9 % (NOT ESTAB.); Beta Globulin, PEP 24h Ur 16.2 % (NOT ESTAB.); Gamma Globulin, PEP 24h Ur 11.8 % (NOT ESTAB.); M-Spike,% PEP 24hr Ur Not Observed % (Not Observed); Protein, PEP 24hr calculated 9834 mg/24 hr (30-150); Protein, Urine 983.4 mg/dL (Not Estab.)
--- NOTE | 2019-08-27 19:16 | DIS ---
DATE OF ADMISSION: 08/21/2019 DATE OF DISCHARGE: 08/27/2019 PRIMARY CARE PROVIDER: [facility]. DISCHARGE DIAGNOSES: 1. Acute kidney injury. 2. Hypertensive urgency. 3. Hyponatremia. Please note that I dictated a discharge summary on 08/26/2019. The patient was not discharged that evening, but is instead being discharged on 08/27/2019. This is because he was lethargic following his surgical procedure. He improved on 08/27, and is being discharged home in a stable. CONDITION OF PATIENT ON THE DAY OF DISCHARGE: Stable. I assessed Mr. Guerrero on the day of discharge. He denies any chest pain or shortness of breath. Vital signs are stable. S1 and S2 are heard, regular. Lungs are clear to auscultation bilaterally. Hospital course, post acute care followup appointments, and discharge medications as dictated in my discharge summary dated 08/26/2019. DIET: Renal and diabetic. ACTIVITY: Ad gwendolyn. DISCHARGE DESTINATION: Home. TIME SPENT: Total amount of time spent coordinating this discharge: 18 minutes. Job ID: [id number]
== END 2019-08-27 09:58 | disposition home or self-care (01) | DRG 674 ==
LOC: ERS 10:56 → T4-A 14:50 → 2SE 14:55 → T4-A 15:16
PROVIDERS: ADMIT Internal Medicine; ATTEND Internal Medicine
PROC: 0JH63XZ Insertion of Tunneled Vascular Access Device into Chest Subcutaneous Tissue and Fascia, Percutaneous Approach (ICD-10-PCS; 2019-08-21)
PROC: 02HV33Z Insertion of Infusion Device into Superior Vena Cava, Percutaneous Approach (ICD-10-PCS; 2019-08-21)
PROC: B548ZZA Ultrasonography of Superior Vena Cava, Guidance (ICD-10-PCS; 2019-08-21)
PROC: B5181ZA Fluoroscopy of Superior Vena Cava using Low Osmolar Contrast, Guidance (ICD-10-PCS; 2019-08-21)
PROC: 0TB13ZX Excision of Left Kidney, Percutaneous Approach, Diagnostic (ICD-10-PCS; 2019-08-24)
PROC: 0WHG43Z Insertion of Infusion Device into Peritoneal Cavity, Percutaneous Endoscopic Approach (ICD-10-PCS; principal; 2019-08-26)
PROC: 3E1M39Z Irrigation of Peritoneal Cavity using Dialysate, Percutaneous Approach (ICD-10-PCS; 2019-08-26)
DX: N17.9 Acute kidney failure, unspecified (principal); E87.1 Hypo-osmolality and hyponatremia; I12.0 Hypertensive chronic kidney disease with stage 5 chronic kidney disease or end stage renal disease; E87.2 Acidosis; D63.8 Anemia in other chronic diseases classified elsewhere; E83.39 Other disorders of phosphorus metabolism; E11.22 Type 2 diabetes mellitus with diabetic chronic kidney disease; I16.0 Hypertensive urgency; N18.6 End stage renal disease; N28.1 Cyst of kidney, acquired; K21.9 Gastro-esophageal reflux disease without esophagitis; N25.81 Secondary hyperparathyroidism of renal origin; M54.9 Dorsalgia, unspecified; Z79.4 Long term (current) use of insulin; Z98.42 Cataract extraction status, left eye; Z98.41 Cataract extraction status, right eye
CPT/HCPCS: 36415; 36416; 50200; 71045; 72195; 74150; 74181; 76770; 77012; 80053; 80069; 81001; 82306; 82570; 82728; 83036; 83540; 83550; 83883; 83970; 84156; 84165; 84166; 84300; 84540; 85025; 85027; 85610; 85730; 86038; 86160; 86225; 86335; 86704; 86706; 86803; 87340; 88329; 93005; 93970; 96374; C1752; C1769; G0365; J0171; J0360; J0690; J1170; J1644; J1815; J2001; J2250; J2405; J2704; J3010; Q0162; S0020; S0028

== ENCOUNTER 2019-10-11 15:27 | Emergency (ER) | payer MEDICARE, MEDICAID ==
[2019-10-11 16:20] LABS: #Basophils 0.1 thou/uL (0.0-0.2); #Eosinphils 0.4 thou/uL (0.0-0.7); #Lymphocytes 2.3 thou/uL (1.20-3.40); #Monocytes 0.8 thou/uL (0.11-0.59); #Neutrophils 5.6 thou/uL (1.40-6.50); %Basophils 0.6 % (0.0-1.0); %Lymphocytes 25.1 % (21.0-51.0); %Monocytes 9.1 % (0.0-10.0); %Neutrophils 61.2 % (42.0-75.0); Hemoglobin 9.7 g/dL (14.0-18.0); Mean Corpuscular HGB CONC 35.4 g/dL (32.0-36.0); Mean Corpuscular Hemoglobin 31.1 pg (27.0-31.0); Mean Corpuscular Volume 87.8 fL (78.0-98.0); Mean Platelet Volume 7.2 fL (7.4-10.4); Platelet Count 239 thou/uL (130-400); RBC Distribution Width 12.4 % (11.5-14.5); Red Blood Cell (RBC) Count 3.11 mill/uL (4.70-6.10); White Blood Cell (WBC) Count 9.1 thou/uL (4.8-10.8)
--- NOTE | 2019-10-11 16:26 | CT ---
Exam: CT brain PROVIDED CLINICAL HISTORY: Dizziness COMPARISON: None FINDINGS: The ventricular system is normal in size and morphology. No evidence for intracranial hemorrhage or mass effect. The extracranial soft tissues and osseous structures demonstrate no evidence for an acute abnormality. IMPRESSION: No evidence for intracranial hemorrhage or mass effect.
--- NOTE | 2019-10-11 16:29 | CT ---
EXAM: CT cervical spine PROVIDED CLINICAL HISTORY: Neck pain COMPARISON: None FINDINGS: No evidence for fracture or traumatic subluxation. No prevertebral soft tissue swelling apparent. Vi sualized lung apices appear clear. Advanced cervical degenerative changes are seen with areas of chronic canal and foraminal narrowing up to severe in degree. Vascular calcifications are seen. IMPRESSION: No evidence for fracture or traumatic subluxation.
[2019-10-11] MEDS ORDERED: Meclizine HCl 25 MG TAB ONE (16:32)
[2019-10-11 16:34] LABS: ALT (SGPT) 14 U/L (8-55); AST (SGOT) 15 U/L (5-34); Albumin 3.4 g/dL (3.4-4.8); Alkaline Phosphatase 136 U/L (40-110); Anion Gap 16 mmol/L (10-20); BUN (Urea Nitrogen) 57 mg/dL (8.4-25.7); Bilirubin, Total 0.3 mg/dL (0.2-1.2); Calc. Creatinine Clearance 0 mL/min (70-130); Calcium 8.9 mg/dL (7.8-10.44); Carbon Dioxide 25 mmol/L (23-31); Chloride 98 mmol/L (98-107); Estimated GFR-MDRD 8; Globulin 3.3 g/dL (2.4-3.5); Glucose 140 mg/dL (83-110); Lipase 43 U/L (8-78); Potassium 4.8 mmol/L (3.5-5.1); Protein, Total 6.7 g/dL (5.8-8.1); Sodium 134 mmol/L (136-145)
--- NOTE | 2019-10-11 16:41 | CT ---
EXAM: CT abdomen and pelvis without contrast PROVIDED CLINICAL HISTORY: Abdominal pain COMPARISON: MRI abdomen 11/21/2019 FINDINGS: The visualized lung bases are free of significant opacity. There is a small amount of pneumoperitoneum and mild free intraperitoneal fluid related to peritoneal dialysis catheter, tip of which is coiled in the pelvis. Cystic structures are again noted involving each kidney. The solid abdominal organs are suboptimally evaluated in the absence of IV contrast material but demonstrate an otherwise unremarkable unenhanced CT appearance. There is no bowel dilatation or localized inflammatory fat stranding evident. Vascular calcifications are noted. The osseous structures demonstrate no concerning lytic or blastic lesions. Advanced spinal degenerati ve changes are seen. IMPRESSION: No evidence for urinary tract calculi or hydronephrosis.
[2019-10-11 17:25] LABS: Bilirubin Negative (Negative); Blood, Urine Negative (Negative); Clarity Clear (Clear); Glucose, Urine (Dipstick) 300 mg/dL (Negative); Leukocyte Negative Leu/uL (Negative); Nitrite Negative (Negative); Protein, Urine (Dipstick) Greater than 600 mg/dL (Neg-Trace); RBC/HPF 0-3 HPF (0-3); Squamous Epithelial 0-3 HPF (0-3); Urobilinogen Normal mg/dL (Less than 2); WBC/HPF 0-3 HPF (0-3)
[2019-10-11 17:26] LABS: Bacteria/HPF 1+ HPF (None Seen)
== END 2019-10-11 18:02 | disposition home or self-care (01) ==
LOC: ERS 15:27
DX: M54.2 Cervicalgia (principal); R42 Dizziness and giddiness; R10.9 Unspecified abdominal pain; E11.22 Type 2 diabetes mellitus with diabetic chronic kidney disease; I12.0 Hypertensive chronic kidney disease with stage 5 chronic kidney disease or end stage renal disease; N18.6 End stage renal disease; Z79.899 Other long term (current) drug therapy
CPT/HCPCS: 70450; 72125; 74176; 80053; 81003; 81015; 83690; 85025; 87086; 93005; J8597

== ENCOUNTER 2019-10-12 15:09 | Outpatient (CLI) | payer MEDICARE, MEDICAID ==
--- NOTE | 2019-10-12 15:53 | RAD ---
XRAY SINUSES UGALDE VIEW ONLY: HISTORY: MRI clearance. Concern for metal in the left eye. FINDINGS/IMPRESSION: No radiopaque density is seen in either orbit to suggest radiopaque foreign body. POS: OFF
--- NOTE | 2019-10-12 16:49 | MRI ---
BRAIN MRI WITHOUT CONTRAST: Date: 10-12-2019 Comparison: None History: Tremors, memory loss, hallucinations. Technique: Multiplanar, multisequence MR imaging of the brain obtained without contrast. FINDINGS: The diffusion weighted imaging demonstrates no evidence for acute infarction. Axial gradient echo imaging demonstrates no evidence for intracranial hemorrhage. There is mild diffuse cerebral volume loss. Arterial flow voids at the axial level of the skull base appear unremarkable on the T2 weighted imaging. There is degenerative change within the imaged cervical spine with anterolisthesis at C3-4. Regional bone marrow signal intensity appears within normal limits. No midline shift or mass effect. Mild periventricular T2 and Flair hyperintensity suggests mild small vessel disease. IMPRESSION: No acute findings. Incidental findings as described above. POS: JOLENE
== END 2019-10-12 15:10 | disposition home or self-care (01) ==
LOC: BICMRI 15:09
PROVIDERS: ATTEND Psychiatry & Neurology Neurology
DX: G31.1 Senile degeneration of brain, not elsewhere classified (principal)
CPT/HCPCS: 70210; 70551

== ENCOUNTER 2019-11-09 06:16 | Outpatient (CLI) | payer MEDICARE, MEDICAID ==
[2019-11-09 12:35] LABS: Bacteria/HPF None Seen HPF (None Seen); Bilirubin Negative (Negative); Blood, Urine Trace (Negative); Clarity Clear (Clear); Glucose, Urine (Dipstick) 500 mg/dL (Negative); Leukocyte Negative Leu/uL (Negative); Nitrite Negative (Negative); Protein, Urine (Dipstick) Greater than 600 mg/dL (Neg-Trace); RBC/HPF 0-3 HPF (0-3); Squamous Epithelial 0-3 HPF (0-3); Urobilinogen Normal mg/dL (Less than 2); WBC/HPF 0-3 HPF (0-3)
[2019-11-09 12:38] LABS: PTT 32.2 SEC (22.9-36.1); Prothrombin Time 13.1 SEC (12.0-14.7)
[2019-11-09 12:51] LABS: Anion Gap 14 mmol/L (10-20); BUN (Urea Nitrogen) 49 mg/dL (8.4-25.7); Calc. Creatinine Clearance 0 mL/min (70-130); Calcium 8.8 mg/dL (7.8-10.44); Carbon Dioxide 26 mmol/L (23-31); Chloride 98 mmol/L (98-107); Estimated GFR-MDRD 9; Glucose 329 mg/dL (83-110); Potassium 4.1 mmol/L (3.5-5.1); Sodium 134 mmol/L (136-145)
[2019-11-09 13:09] LABS: Hemoglobin 9.7 g/dL (14.0-18.0); Mean Corpuscular HGB CONC 36.2 g/dL (32.0-36.0); Mean Corpuscular Volume 85.7 fL (78.0-98.0); Mean Platelet Volume 7.4 fL (7.4-10.4); Platelet Count 179 thou/uL (130-400); RBC Distribution Width 12.9 % (11.5-14.5); Red Blood Cell (RBC) Count 3.14 mill/uL (4.70-6.10); White Blood Cell (WBC) Count 9.3 thou/uL (4.8-10.8)
== END 2019-11-09 06:17 | disposition home or self-care (01) ==
LOC: LABBT 06:16
PROVIDERS: ATTEND Urology
DX: Z01.818 Encounter for other preprocedural examination (principal); C67.2 Malignant neoplasm of lateral wall of bladder; N18.6 End stage renal disease; N40.1 Benign prostatic hyperplasia with lower urinary tract symptoms; N31.8 Other neuromuscular dysfunction of bladder; Z99.2 Dependence on renal dialysis
CPT/HCPCS: 80048; 81001; 85027; 85610; 85730; 87086; 93005; 93010

== ENCOUNTER 2019-11-12 09:47 | Day surgery (SDC) | payer MEDICARE, MEDICAID ==
[2019-11-09 10:51] VITALS: BMI 23.8
[2019-11-12] MEDS ORDERED: Levofloxacin 500 mg/D5W 100 ml Premix Bag ONE (10:34)
[2019-11-12] MEDS ORDERED: Metoclopramide HCl 10 MG/2 ML VIAL ONE (11:18)
[2019-11-12] MEDS ORDERED: PROPOFOL 200 MG/20 ML VIAL ONE (11:18)
[2019-11-12] MEDS ORDERED: Succinylcholine Chloride 20 MG/ML 10 ml SYRINGE FS ONE (11:18)
[2019-11-12] MEDS ORDERED: Lidocaine 1% PF 5 ML VIAL ONE (11:18)
[2019-11-12] MEDS ORDERED: Ondansetron PF 4 MG/2 ML Vial ONE (11:18)
[2019-11-12] MEDS ORDERED: hydrALAZINE 20 MG/ML VIAL ONE ×2 (11:58→14:04)
[2019-11-12] MEDS ORDERED: Famotidine/PF 20 mg/2ml Vial ONE (13:39)
[2019-11-12] MEDS ORDERED: Fentanyl 100 MCG/2 ML VIAL ONE (13:39)
[2019-11-12] MEDS ORDERED: Promethazine HCl 25 MG/ML VIAL SLOW IVP PRN (14:55)
[2019-11-12] MEDS ORDERED: Ondansetron HCl/PF 4 MG/2 ML Vial IVP PRN (14:55)
--- NOTE | 2019-11-12 15:39 | OP ---
DATE OF PROCEDURE: 11/12/2019 SERVICE: Urology. PREOPERATIVE DIAGNOSIS: Bladder tumor. POSTOPERATIVE DIAGNOSIS: Bladder tumor. PROCEDURES PERFORMED: Cystoscopy, bladder biopsy, and fulguration of site. INDICATION FOR PROCEDURE: Mr. Guerrero is a 74-year-old male with end-stage renal disease, currently on dialysis, who presented to me with a reported history of being apparently diagnosed with a bladder tumor in [place]. He has not had any gross hematuria. He was concerned about this, so we elected to proceed with an office cystoscopy, which demonstrated a small lesion on the right lateral bladder wall, which was somewhat concerning for bladder cancer. I told him we should go ahead and get this biopsied as it did look suspicious. Risks and benefits of the surgery were discussed and he has agreed to proceed forward. DESCRIPTION OF PROCEDURE: After identification of armband and verification of consent, the patient was brought back to the operating room. He underwent general anesthesia with endotracheal intubation. He was then placed in dorsal lithotomy position and prepped and draped in usual sterile fashion. After appropriate time-out, a lubricated 22-Tuvaluan rigid cystoscope was introduced per urethra into the bladder. A full cystoscopy was performed, which demonstrated a lesion in the right lateral bladder wall, just proximal to the ureteral orifice. 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 Unfortunately, he is already on dialysis, so neither of these kidneys probably work. Nonetheless, the tumor was identified. No other tumors were noted on full cystoscopy with both the 30 and 70 degree lens. A cold cup biopsy forceps was used to grasp the area of the tumor, and in two separate biopsies, approximately 80% of the tumor was removed and submitted for routine pathologic evaluation. The Bugbee electrode was brought in and used to fulgurate the site of the lesion until all visible tumor like tissue and surrounding tissues were completely destroyed and full hemostasis was achieved. Care was made not to be too close to the ureter and no injuries to any of the three ureteral orifices were identified. Upon completion, there was complete hemostasis. No tumor remained. All specimen had been submitted. The bladder was evacuated and then refilled and left partially filled as the patient will need to do a void trial after surgery and since he hardly produces much urine, I did not want to necessarily wait to see if he could urinate. The cystoscope was then removed. The patient was taken out of positioning, awakened, taken to PACU for recovery in stable condition. COMPLICATIONS: None. ESTIMATED BLOOD LOSS: Minimal. RETAINED TUBES AND DRAINS: None. SPECIMENS: Bladder biopsy x2. DISPOSITION: The patient will be discharged home, and follow up with me in approximately 1 week for biopsy results. Job ID: [id number]
== END 2019-11-12 16:30 | disposition home or self-care (01) ==
LOC: SDC 09:47
PROVIDERS: ATTEND Urology
PROC: 0T5B8ZZ Destruction of Bladder, Via Natural or Artificial Opening Endoscopic (ICD-10-PCS; principal; 2019-11-12)
DX: C67.2 Malignant neoplasm of lateral wall of bladder (principal); I12.0 Hypertensive chronic kidney disease with stage 5 chronic kidney disease or end stage renal disease; N18.6 End stage renal disease; N40.1 Benign prostatic hyperplasia with lower urinary tract symptoms; N13.8 Other obstructive and reflux uropathy; Z79.899 Other long term (current) drug therapy; Z99.2 Dependence on renal dialysis
CPT/HCPCS: 36416; 88305; J0360; J1956; J2001; J2405; J2704; J2765; J3010; S0028

== ENCOUNTER 2019-11-16 12:59 | Outpatient (CLI) | payer MEDICARE, MEDICAID ==
--- NOTE | 2019-11-16 13:47 | ULT ---
Venous duplex sonogram left upper extremity HISTORY: Left arm pain and edema. FINDINGS: The left internal jugular and subclavian veins were evaluated along with the axillary, brac hial, cephalic, and basilic veins. There is good color and spectral Doppler flow. No internal thrombus. IMPRESSION : Normal exam.
== END 2019-11-16 13:00 | disposition home or self-care (01) ==
LOC: SCSULT 12:59
PROVIDERS: ATTEND Internal Medicine Nephrology
DX: R60.0 Localized edema (principal); M79.89 Other specified soft tissue disorders

== ENCOUNTER 2020-01-13 06:56 | Outpatient (CLI) | payer MEDICARE, MEDICAID, OTHER ==
[2020-01-14 18:19] LABS: SARS-CoV-2 MS2 Positive; SARS-CoV-2 N Gene Negative; SARS-CoV-2 S Gene Negative; SARS-CoV-2 orf1ab Negative
== END 2020-01-13 06:57 | disposition home or self-care (01) ==
LOC: LABBT 06:56
PROVIDERS: ATTEND Specialist
DX: T85.611A Breakdown (mechanical) of intraperitoneal dialysis catheter, initial encounter (principal); N18.6 End stage renal disease
CPT/HCPCS: 93005; U0003; 87635; 93010

== ENCOUNTER 2020-01-15 05:53 | Day surgery (SDC) | payer MEDICARE, MEDICAID ==
[2020-01-13 12:27] VITALS: BMI 24.3
--- NOTE | 2020-01-15 06:17 | HP ---
HISTORY OF PRESENT ILLNESS: Edgar Guerrero is a 74-year-old male patient, whom I placed laparoscopic PD catheter in, as they removed his HD catheter. He, however, had inadequate peritoneal dialysis, developed edema and had to convert to hemodialysis catheter. Dr. Carney, [facility], placed a right IJ cuff tunneled dialysis catheter. 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 Ultrasound vein mapping in August suggested the right dominant arm to be superior. He understands risks and benefits of the procedure, consents, will plan this under regional TIVA local versus general anesthesia choice per anesthesiologist. TOBACCO: None. ALCOHOL: None. MEDICATIONS: 1. Insulin. 2. Carvedilol. 3. Nifedipine. 4. Sevelamer. 5. Flomax. PAST SURGICAL HISTORY: Hemodialysis catheter placement, peritoneal dialysis catheter placement, right IJ hemodialysis catheter placement recently by Dr. [facility]. ALLERGIES: NONE. PAST MEDICAL HISTORY: Hypertension and end-stage renal disease. REVIEW OF SYSTEMS: Noncontributory. PHYSICAL EXAMINATION: VITAL SIGNS: 145 pounds, 66 inches, 137/60, 72, and 98.8 degrees. HEAD, EARS, EYES, NOSE, AND THROAT: Unremarkable. LUNGS: Clear to auscultation. CARDIAC: Regular rate and rhythm, without murmur or gallop. ABDOMEN: Soft and nontender. Peritoneal dialysis catheter in place. EXTREMITIES: Right IJ cuffed tunneled dialysis catheter. Palpable radial pulses bilaterally. Palpable ulnar pulses bilaterally. ASSESSMENT/PLAN: 1. End-stage renal disease, inadequate peritoneal dialysis, undesired peritoneal dialysis catheter. Plan removal of peritoneal dialysis catheter and placement of right arm primary arteriovenous fistula as an outpatient. He understands risks and benefits. He dialyzes on Saturday, Saturday, and Saturday at 5 p.m. We will plan these procedures on Saturday or Saturday in the morning to allow him to go to dialysis on the same day. 2. Hypertension. Job ID: [id number]
[2020-01-15] MEDS ORDERED: Bupivacaine PF 0.5% 30 ML VIAL ONE (06:41)
[2020-01-15] MEDS ORDERED: Heparin 5,000 UNITS/ML VIAL ONE (06:41)
[2020-01-15] MEDS ORDERED: Protamine Sulfate 50 MG/5 ML VIAL ONE (06:41)
[2020-01-15] MEDS ORDERED: Sodium Chloride 0.9% 0 ML ONE (06:41)
[2020-01-15] MEDS ORDERED: Heparin 10,000 UNITS/1 ML VIAL ONE (06:41)
[2020-01-15] MEDS ORDERED: Lidocaine 2% w/Epinephrine 1:200K 20 ML VIAL ONE (06:41)
[2020-01-15] MEDS ORDERED: Propofol 500 MG/50 ML VIAL ONE (06:46)
[2020-01-15] MEDS ORDERED: Fentanyl 100 MCG/2 ML VIAL ONE ×2 (06:46→07:18)
[2020-01-15 07:17] LABS: #Basophils 0.1 thou/uL (0.0-0.2); #Eosinphils 0.4 thou/uL (0.0-0.7); #Lymphocytes 2.4 thou/uL (1.20-3.40); #Monocytes 0.8 thou/uL (0.11-0.59); #Neutrophils 3.6 thou/uL (1.40-6.50); %Basophils 0.7 % (0.0-1.0); %Lymphocytes 32.3 % (21.0-51.0); %Monocytes 11.2 % (0.0-10.0); %Neutrophils 49.9 % (42.0-75.0); Hemoglobin 9.8 g/dL (14.0-18.0); Mean Corpuscular HGB CONC 35.7 g/dL (32.0-36.0); Mean Corpuscular Hemoglobin 32.1 pg (27.0-31.0); Mean Corpuscular Volume 89.9 fL (78.0-98.0); Mean Platelet Volume 8.1 fL (7.4-10.4); Platelet Count 184 thou/uL (130-400); RBC Distribution Width 12.7 % (11.5-14.5); Red Blood Cell (RBC) Count 3.04 mill/uL (4.70-6.10); White Blood Cell (WBC) Count 7.3 thou/uL (4.8-10.8)
[2020-01-15 07:26] LABS: Anion Gap 15 mmol/L (10-20); BUN (Urea Nitrogen) 32 mg/dL (8.4-25.7); Calc. Creatinine Clearance 12 mL/min (70-130); Calcium 8.9 mg/dL (7.8-10.44); Carbon Dioxide 25 mmol/L (23-31); Chloride 101 mmol/L (98-107); Estimated GFR-MDRD 11; Glucose 174 mg/dL (83-110); Potassium 4.5 mmol/L (3.5-5.1); Sodium 136 mmol/L (136-145)
[2020-01-15] MEDS ORDERED: Heparin 10,000 UNITS/ 10 ML VIAL ONE (09:56)
[2020-01-15] MEDS ORDERED: Ondansetron ODT 4 MG TAB ONE (10:31)
[2020-01-15] MEDS ORDERED: PROPOFOL 200 MG/20 ML VIAL ONE (13:35)
[2020-01-15] MEDS ORDERED: EPHEDRINE 25 MG/5 ML SYRINGE ONE (13:35)
[2020-01-15] MEDS ORDERED: Bupivacaine HCl 0.5%/Epinephrine 1:200,000/PF 30 ml Vial ONE (13:35)
--- NOTE | 2020-01-15 16:42 | OP ---
DATE OF PROCEDURE: 01/15/2020 PREOPERATIVE DIAGNOSES: End-stage renal disease, dysfunctional peritoneal dialysis catheter. POSTOPERATIVE DIAGNOSES: End-stage renal disease, dysfunctional peritoneal dialysis catheter. PROCEDURES PERFORMED: Right Yuriy fistula, radial artery, cephalic vein; 4-mm coronary dilator; and removal of peritoneal dialysis catheter. ANESTHESIA: Regional, TIVA, local 0.5% Marcaine 30 mL mixed with 1% lidocaine with epinephrine, 30 mL total volume mixture used. DESCRIPTION OF PROCEDURE: The patient was taken to the operating room, where under intravenous sedation, a right arm regional anesthesia and his right upper extremity, abdomen, and PD catheter were prepared with ChloraPrep and draped in routine fashion. Incision was made between the radial artery and cephalic vein, carried down through skin and subcutaneous tissue. Radial artery and cephalic vein dissected free. Cephalic vein ligated on the hand side with 3-0 silk suture device. It was spatulated, interrogated with coronary dilators, passing coronary dilators from 2 mm to 4 mm coronary dilator without obstruction throughout the cephalic vein. Branches divided between clips and 4-0 silk ties. The patient was given 6000 units of heparin intravenously. Radial artery was dissected free, branched and clipped and radial artery controlled proximally and distally. Longitudinal arteriotomy made sharply, elongated with Grier scissors and accordingly, cephalic veins spatulated and end vein to side of radial artery anastomosis created with continuous suture of 6-0 Prolene. After completing the anastomosis, releasing the vascular clamps, noted good Doppler signal throughout the cephalic vein outflow. Good hemostasis was noted. The patient was given 25 mg of protamine intravenously by Anesthesia. Subcutaneous tissues were approximated with 3-0 Monocryl, skin with subdermal 4-0 Monocryl. Attention was then turned to removal of the PD catheter. Local anesthetic mixture was infiltrated into the skin and subcutaneous tissue about the operative sites and catheter and both cuffs removed intact, discarding them, placing a gauze dressing loosely into the wound. The patient tolerated the procedure well. Job ID: [id number]
== END 2020-01-15 10:47 | disposition home or self-care (01) ==
LOC: SDC 05:53
PROVIDERS: ATTEND Specialist
PROC: 0WPG03Z Removal of Infusion Device from Peritoneal Cavity, Open Approach (ICD-10-PCS; principal; 2020-01-15)
PROC: 031B0ZF Bypass Right Radial Artery to Lower Arm Vein, Open Approach (ICD-10-PCS; 2020-01-15)
DX: I12.0 Hypertensive chronic kidney disease with stage 5 chronic kidney disease or end stage renal disease (principal); N18.6 End stage renal disease; T85.611A Breakdown (mechanical) of intraperitoneal dialysis catheter, initial encounter; Z79.84 Long term (current) use of oral hypoglycemic drugs; Z79.899 Other long term (current) drug therapy; Z99.2 Dependence on renal dialysis
CPT/HCPCS: 80048; 85025; J0670; J0690; J1644; J2704; J2720; J3010; Q0162; S0020

== ENCOUNTER 2020-04-27 22:38 | Inpatient (IN) | payer MEDICARE, MEDICAID, OTHER ==
[2020-04-27] MEDS ORDERED: Acetaminophen 500 MG TAB ONE (22:56)
[2020-04-27] MEDS ORDERED: Ondansetron PF 4 MG/2 ML Vial ONE (22:56)
[2020-04-27 23:17] LABS: Hemoglobin 9.1 g/dL (14.0-18.0); Mean Corpuscular HGB CONC 36.4 g/dL (32.0-36.0); Mean Corpuscular Hemoglobin 33.4 pg (27.0-31.0); Mean Corpuscular Volume 91.8 fL (78.0-98.0); Mean Platelet Volume 7.5 fL (7.4-10.4); Platelet Count 162 thou/uL (130-400); Red Blood Cell (RBC) Count 2.74 mill/uL (4.70-6.10); White Blood Cell (WBC) Count 7.6 thou/uL (4.8-10.8)
[2020-04-27 23:39] LABS: ALT (SGPT) 31 U/L (8-55); AST (SGOT) 32 U/L (5-34); Albumin 4.4 g/dL (3.4-4.8); Alkaline Phosphatase 118 U/L (40-110); Anion Gap 20 mmol/L (10-20); BUN (Urea Nitrogen) 16 mg/dL (8.4-25.7); Bilirubin, Total 0.8 mg/dL (0.2-1.2); Calc. Creatinine Clearance 0 mL/min (70-130); Carbon Dioxide 25 mmol/L (23-31); Chloride 95 mmol/L (98-107); Estimated GFR-MDRD 18; Globulin 3.9 g/dL (2.4-3.5); Glucose 160 mg/dL (83-110); Potassium 4.5 mmol/L (3.5-5.1); Protein, Total 8.3 g/dL (5.8-8.1); Sodium 135 mmol/L (136-145)
[2020-04-27 23:40] LABS: Band 15 % (5-11); Eosinophils 3 % (0-10); Lymphocytes 10 % (21-51); MDiff Complete? YES; Monocytes 2 % (0-10); Neutrophil 70 % (42-75)
--- NOTE | 2020-04-27 23:46 | RAD ---
Portable frontal chest radiograph: 04/27/2020 COMPARISON: 08/22/2019 HISTORY: Fever FINDINGS: Stable right-sided dialysis catheter. Multiple old right-sided rib fractures. Old left clav icle fracture. No focal consolidation or alveolar edema. Stable atherosclerotic calcification of the aortic arch. IMPRESSION: Chronic findings as above. No focal consolidation or alveolar edema.
[2020-04-28] MEDS ORDERED: Vancomycin 1 GM/200 ML BAG ONE (00:20)
[2020-04-28] MEDS ORDERED: Cefepime 2 GM VIAL ONE (00:20)
[2020-04-28 02:39] LABS: Lactic Acid 1.9 mmol/L (0.5-2.2)
[2020-04-28 02:51] LABS: SARS-CoV-2 NAA Rapid Test Not Detected (NotDetected)
[2020-04-28] MEDS ORDERED: Ondansetron PF 4 MG/2 ML Vial IVP PRN (04:40)
[2020-04-28] MEDS ORDERED: Labetalol HCl 100 MG/20 ML VIAL SLOW IVP PRN (04:40)
[2020-04-28] MEDS ORDERED: Promethazine HCl 12.5 MG in Sodium Chloride 0.9% 50 ML IVPB PRN (04:40)
[2020-04-28] MEDS ORDERED: hydrALAZINE 20 MG/ML VIAL SLOW IVP PRN (04:40)
[2020-04-28] MEDS ORDERED: Guaifenesin DM 100-10/5 ML UDCUP PO PRN (04:40)
[2020-04-28] MEDS ORDERED: Acetaminophen 325 MG TAB PO PRN (04:40)
[2020-04-28] MEDS ORDERED: cloNIDine 0.1 MG TAB PO PRN (04:40)
[2020-04-28] MEDS ORDERED: Electrolyte Replacement Protoc 1 EACH EACH FS SCH (04:45)
--- NOTE | 2020-04-28 04:47 | PDOC.HHP ---
Hospitalist HPI - History of Present Illness Fever History of Present Illness: Patient is a 74 year old male with PMH DM, HTN, ESRD on MWF HD who presents to ED after developing fever, chlls, at HD yesterday evening. Patient was dropped off by son at 5pm for HD session, while there he developed a fever to 102, chills, generalized weakness and MD referred patient to ED. He sees Dr Adams for HD and has a tunneled HD cath in R chest. He also has an AVF RUE which is not fully usable. Patient denies any other hardware in body, denies shortness of breath, chest pain, nausea, vomiting, diarrhea, abdominal pain, nasal congestion. In ED, lactic acid 3.5, CXR with chronic findings but no acute changes. Patient given vancomycin and cefepime, cultures drawn, COVID swab negative, patient urinates 1-2 times a day and awaiting sample, patient admitted for sepsis of unknown source. Hospitalist ROS - Review of Systems Constitutional: reports: chills, weakness. denies: fever, sweats, malaise, other Eyes: denies: pain, vision change, conjunctivae inflammation, eyelid inflammation, redness, other ENT: denies: ear pain, ear discharge, nose pain, nose discharge, nose congestion, mouth pain, mouth swelling, throat pain, throat swelling, other Respiratory: denies: cough, dry, shortness of breath, hemoptysis, SOB with excertion, pleuritic pain, sputum, wheezing, other Cardiovascular: denies: chest pain, palpitations, orthopnea, paroxysmal noc. dyspnea, edema, light headedness, other Gastrointestinal: denies: nausea, vomiting, abdominal pain, diarrhea, constipation, melena, hematochezia, other Genitourinary: denies: dysuria, frequency, incontinence, hematuria, retention, other Musculoskeletal: denies: neck pain, shoulder pain, arm pain, back pain, hand pain, leg pain, foot pain, other Skin: denies: rash, lesions, nilsa, bruising, other Neurological: denies: weakness, numbness, incoordination, change in speech, confusion, seizures, other All other systems reviewed; all pertinent +/- noted in HPI/Subj Hospitalist History - Past Medical History Other Medical History: DM, HTN, ESRD - Past Surgical History Other Surgical History: RUE AVF R chest dialysis port - Family History Family History: reports: no pertinent history - Social History Alcohol: reports: None Drugs: reports: none - Exam General Appearance: NAD, awake alert Eye: PERRL, anicteric sclera ENT: normocephalic atraumatic, no oropharyngeal lesions, moist mucosa Neck: supple, symmetric, no JVD, no thyromegaly, no lymphadenopathy, no carotid bruit Heart: RRR, no murmur, no gallops, no rubs, normal peripheral pulses Heart - other findings: R chest wall tunneled HD cath Respiratory: CTAB, no wheezes, no rales, no ronchi, normal chest expansion, no tachypnea, normal percussion Gastrointestinal: soft, non-tender, non-distended, normal bowel sounds, no palpable masses, no hepatomegaly, no splenomegaly, no bruit Extremities: no cyanosis, no clubbing, no edema Extremities - other findings: RUE AVF Skin: normal turgor, no lesions, no rashes Neurological: cranial nerve grossly intact, normal sensation to touch, no wea kness, no focal deficits, no new deficit Musculoskeletal: normal tone, normal strength, no muscle wasting Psychiatric: normal affect, normal behavior, A&O x 3 Hospitalist Results - Labs Result Diagrams: 04/27/20 23:00 04/27/20 23:00 Lab results: WBC 7.6 thou/uL (4.8-10.8) 04/27/20 23:00 Hgb 9.1 g/dL (14.0-18.0) L 04/27/20 23:00 Hct 25.1 % (42.0-52.0) L 04/27/20 23:00 MCV 91.8 fL (78.0-98.0) 04/27/20 23:00 Plt Count 162 thou/uL (130-400) 04/27/20 23:00 Band Neuts % (Manual) 15 % (5-11) H 04/27/20 23:00 Sodium 135 mmol/L (136-145) L 04/27/20 23:00 Potassium 4.5 mmol/L (3.5-5.1) 04/27/20 23:00 Chloride 95 mmol/L (98-107) L 04/27/20 23:00 Carbon Dioxide 25 mmol/L (23-31) 04/27/20 23:00 BUN 16 mg/dL (8.4-25.7) 04/27/20 23:00 Creatinine 3.35 mg/dL (0.7-1.3) H 04/27/20 23:00 Glucose 160 mg/dL (83-110) H 04/27/20 23:00 Lactic Acid 1.9 mmol/L (0.5-2.2) 04/28/20 02:12 Calcium 9.0 mg/dL (7.8-10.44) 04/27/20 23:00 Total Bilirubin 0.8 mg/dL (0.2-1.2) 04/27/20 23:00 AST 32 U/L (5-34) 04/27/20 23:00 ALT 31 U/L (8-55) 04/27/20 23:00 Alkaline Phosphatase 118 U/L (40-110) H 04/27/20 23:00 Troponin I 0.017 ng/mL (< 0.028) 04/27/20 23:00 Serum Total Protein 8.3 g/dL (5.8-8.1) H 04/27/20 23:00 Albumin 4.4 g/dL (3.4-4.8) 04/27/20 23:00 Additional comment: VITAL SIGNS Mercedes Apr 28, 2020 03:32 VANDANA Santillan Samantha BP: 102/52 MAP: 68 Pulse: 67 Resp: 14 O2 sat: 97 on (Room Air) Time: 04/28/2020 03:32. labs, imaging reports, ED documents reviewed by fl Hospitalist H&P A/P - Plan Plan: Patient is a 74 year old male with PMH DM, HTN, ESRD on MWF HD who presents to ED after developing fever, chills at HD yesterday evening. # sepsis # ESRD - patient with fever, elevated lactic acid, no source obvious, awaiting urine sample may need to straight cath, COVID swab negative - patient has R chest wall tunneled cath which could be source of infection, will leave for now since need HD access and will await nephrology input and blood cultures - follow blood, urine cultures - continue empiric vanc/zosyn - consult nephrology # DM - SSI # HTN - hold scheuled HTN meds while septic, PRN meds in chart # DVT/GI ppx - full code
[2020-04-28] MEDS ORDERED: Dextrose 5% in Water 1,000 ML IV PRN (04:55)
[2020-04-28] MEDS ORDERED: HumaLOG 300 UNITS/3 ML VIAL SC PRN ×2 (04:55→15:47)
[2020-04-28] MEDS ORDERED: Dextrose 50% Abboject 50 ML SYRINGE SLOW IVP PRN (04:55)
[2020-04-28 06:06] LABS: Bacteria/HPF None Seen HPF (None Seen); Bilirubin Negative (Negative); Blood, Urine Trace (Negative); Clarity Clear (Clear); Glucose, Urine (Dipstick) 100 mg/dL (Negative); Ketone, Urine Negative (Negative); Leukocyte Negative Leu/uL (Negative); Nitrite Negative (Negative); Protein, Urine (Dipstick) Greater than 600 mg/dL (Neg-Trace); RBC/HPF 0-3 HPF (0-3); Specific Gravity, Urine 1.018 (1.002-1.036); Squamous Epithelial 0-3 HPF (0-3); Urobilinogen Normal mg/dL (Less than 2); pH, Urine 7.5 (5.0-9.0)
[2020-04-28 06:19] VITALS: BMI 22.4
[2020-04-28] MEDS: Piperacillin/Tazobactam 2.25 GM in Sodium Chloride 0.9% 100 ML IVPB SCH ×2 (06:26→14:00)
[2020-04-28] MEDS: Polyethylene Glycol 3350 17 GM Packet PO SCH (08:01)
[2020-04-28] MEDS: Famotidine 20 MG TAB PO SCH (08:01)
[2020-04-28] MEDS: Heparin 5,000 UNITS/ML VIAL SC SCH ×2 (08:02→20:32)
--- NOTE | 2020-04-28 12:54 | CON ---
DATE OF CONSULTATION: 04/28/2020 SERVICE: Nephrology. REASON FOR CONSULTATION: End-stage renal disease management. REQUESTING PHYSICIAN: Dr. Hemant Bhatt. CHIEF COMPLAINT: Fever and chills. HISTORY OF PRESENT ILLNESS: A 74-year-old male with known history of end-stage renal disease due to diabetic nephropathy, on hemodialysis, who was admitted due to acute onset of fever associated with chills as well as nausea during hemodialysis yesterday, April 27, 2020. The patient was found to have T-max of 102, associated with nausea and ill feeling. There was no vomiting, dysuria, chest pain, cough, or shortness of breath. The patient with AV fistula as well as tunneled dialysis catheter has been having dialysis via the AV fistula. However, fistula infiltrated on April 25, necessitating use of tunneled dialysis catheter. Impression of sepsis from possible catheter-associated infection was made, and the patient was started on broad-spectrum antibiotics after blood culture collection. The patient reports feeling better. Denied nausea or vomiting. Fever has subsided. He also complains of intermittent left hip pain. Denied dysuria, hematuria, change in bowel habit, cough, or shortness of breath. OBJECTIVE: VITAL SIGNS: Temperature 98.4, pulse 64, respiratory rate 20, SpO2 of 98% on room air, and blood pressure is 129/64. GENERAL: Comfortable healthy-looking male, in no distress. Afebrile. Anicteric. Acyanotic. HEENT: Normocephalic, atraumatic. Oral mucosa is moist. NECK: Supple with no JVD. Right IJ tunneled dialysis catheter noted. CARDIOVASCULAR: Regular rhythm and rate with normal heart sounds 1 and 2. RESPIRATORY: Good air entry bilaterally with no obvious crackle or rhonchi or use of accessory muscles. GI: Full, soft, nontender, nondistended with normal bowel sounds. MUSCULOSKELETAL/EXTREMITIES: Right forearm AV fistula with good thrill. Resolving hematomas/infiltrates on the proximal aspect of forearm noted. Right upper chest tunneled dialysis catheter noted with no drainage or erythema. Extremities are grossly normal looking with no edema or erythema. SOLDERER BARREL RIBS: Conscious, alert, oriented x3 with appropriate mental status. Cranial nerves 2 through 12 are grossly intact. DIAGNOSTIC DATA: CBC on presentation last night, April 27, 2020, showed WBC count of 7.6, hemoglobin of 9.1, MCV of 91.8, and platelets of 162. Chemistry last night, April 27, showed sodium 135, potassium 4.5, chloride 95, CO2 of 25, BUN 16, creatinine 3.35, glucose 160, calcium 9.0, total bilirubin 0.8, AST 32, ALT 31, alkaline phosphatase 118, total protein 8.3, and albumin 4.4. Initial lactic acid was 3.5 with repeat 3 hours later 1.9. Urinalysis earlier today showed yellow clear urine with pH of 7.5, specific gravity of 1.018, positive protein and glucose, negative ketone, nitrites, bilirubin, and leukocyte esterase. Microscopy showed 0 to 3 rbc and 7 to 10 wbc with no bacteria seen. COVID PCR was negative. Chest x-ray on April 27 showed stable right-sided dialysis catheter as well as multiple old right-sided rib fractures. Old left clavicular fracture also noted. No focal consolidation or alveolar edema was appreciated. ASSESSMENT: 1. Acute febrile illness. Catheter-associated bloodstream infection is a concern given presence of tunneled dialysis catheter. 2. Suspected catheter-associated bloodstream infection. 3. End-stage renal disease, on hemodialysis. Last dialysis was yesterday, April 27. 4. Diabetes mellitus, on treatment. 5. Hypertension, on treatment. 6. Volume status: Euvolemic. 7. Acid-base derangement: Acceptable. 8. Electrolytes: Acceptable. PLAN: 1. Continue antimicrobial. Follow blood culture. 2. We will continue to dialyze the patient in line with outpatient dialysis schedule. There is no need for hemodialysis today. We will plan on dialyzing the patient tomorrow. 3. Further treatment to follow depending on hospital course. Many thanks for involving us in the care of this patient. We will follow along with you. Job ID: [id number]
[2020-04-28] MEDS ORDERED: Docusate 100 MG CAP PO PRN (15:47)
[2020-04-28] MEDS ORDERED: Vancomycin 1 GM in Premix Bag 1 BAG IVPB SCH ×2 (16:00→16:15)
[2020-04-28] MEDS ORDERED: Vancomycin HCl 750 MG in Sodium Chloride 0.9% 250 ML 250 ML IVPB SCH (16:15)
[2020-04-28] MEDS ORDERED: Vancomycin HCl 500 MG in Sodium Chloride 0.9% 100 ML IVPB SCH (16:15)
[2020-04-28] MEDS ORDERED: Vancomycin HCl 250 MG in Sodium Chloride 0.9% 100 ML IVPB SCH (16:15)
[2020-04-28] MEDS ORDERED: HOLD VANCOMYCIN FOR LEVEL >20 FS SCH (16:15)
[2020-04-28] MEDS: Carvedilol 3.125 MG TAB PO SCH (16:54)
--- NOTE | 2020-04-28 19:54 | CON ---
DATE OF CONSULTATION: REASON FOR CONSULTATION: Fever. HISTORY OF PRESENT ILLNESS: A 74-year-old who has a history of type 2 diabetes mellitus, hypertension, and end-stage renal disease. He had been doing peritoneal dialysis, but that had to be stopped because of dysfunction of the port, and the peritoneal dialysis catheter was removed and he has a tunneled catheter now in the right IJ position. Yuriy fistula has been placed in the right upper extremity and they are waiting for it to mature. He for the past 3 weeks has had recurrent episodes of fever and he did not pay much attention to it, and then today in dialysis, he was noticed to have a temperature of 100 Fahrenheit. He had weakness and was having chills. He did not have headaches. No visual symptoms. No back pain. No cough, sputum production, or chest pain. No abdominal pain or diarrhea. He does not have much of urinary output. He came to the emergency room and his initial findings included blood pressure 130/60, pulse 97, temperature 100.8, and O2 saturations were 98% on room air. The exam was fairly unremarkable. Other findings on admission included a white cell count of 7.6, hemoglobin 9.1, and platelets 162 with 15% bands. Sodium 135, creatinine 3.35. Liver profile normal except for alkaline phosphatase of 118, probably from bone origin. Albumin is 4.4, serum total protein 8.3, and globulin 3.9. Urinalysis with 7 to 10 wbc's and greater than 600 protein. Serology with negative COVID PCR. The patient had a chest x-ray, which did not show any areas of infiltrate, just chronic findings. Currently, Mr. Guerrero appears in no distress. REVIEW OF SYSTEMS: A 10-point review of systems is as above. PAST MEDICAL HISTORY: Type 2 diabetes; hypertension; ischemic cardiomyopathy, AICD in place; end-stage renal disease with previous peritoneal dialysis, now he has been on hemodialysis through a tunneled catheter. The tunneled catheter was placed in January by Dr. Delarosa. ALLERGIES: NONE. MEDICATIONS: 1. Inhalers. 2. Clonidine. 3. Pepcid. 4. Robitussin. 5. Hydralazine. 6. Insulin. 7. Normodyne. 8. Zosyn. SOCIAL HISTORY: Never smoker. No alcoholic beverage use. 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 PHYSICAL EXAMINATION: VITAL SIGNS: Since admission, he has been afebrile. BP 120/60, pulse 64, respirations 20, O2 saturation 98%. SKIN: Okay. The tunneled catheter did not show any inflammatory changes or tenderness. There is no lymphadenopathy. HEENT: Ocular movements are conjugate. Oral cavity with no remarkable findings. NECK: Supple. No jugular vein distention. LUNGS: Symmetric. Clear breath sounds. HEART: S1 and S2. Regular rate. No S3 or S4. ABDOMEN: Soft, not distended or tender. No ascites. No bladder distention. EXTREMITIES: No joint inflammatory activity. No edema. Pulses 1+ in dorsalis pedis. Plantar responses are flexor. Moves all extremities equally. NEUROLOGIC: Awake, oriented, and follows commands. He was a little bit inconsistent in his history. He would change his version of events from time to time, specifically the duration of his fever. It is not clear to me how long he has had a fever, but it seems to be for more than a few weeks intermittently. LABORATORY DATA: Has been reviewed above. We do not have any serial results. Lactic acid was 3.5 and now is down to 1.9. Blood cultures pending, I believe from the dialysis and from here. ASSESSMENT: Type 2 diabetes; hypertension; ischemic cardiomyopathy, automatic implantable cardioverter defibrillator; end-stage renal disease, on hemodialysis with tunneled catheter; fever; chills. DISCUSSION: Differential diagnosis includes bacteremia associated with one of the devices and the critical information here will be the results of blood cultures. We may have had blood culture submitted from the [facility]ialysis [facility], but also the ones from the hospital. He has been started on antimicrobial therapy. We may need an echocardiogram. If the blood cultures result negative, then we will have to pursue the FUO workup with imaging studies, etc., but I trust that the blood cultures will return positive results. Job ID: [id number]
[2020-04-28] MEDS: Atorvastatin Calcium 20 MG TAB PO SCH (20:32)
[2020-04-28] MEDS: Sevelamer Carbonate 800 MG TAB PO SCH (20:33)
[2020-04-29] MEDS: Piperacillin/Tazobactam 2.25 GM in Sodium Chloride 0.9% 100 ML IVPB SCH ×2 (01:36→17:25)
[2020-04-29 06:08] LABS: #Basophils 0.1 thou/uL (0.0-0.2); #Eosinphils 0.3 thou/uL (0.0-0.7); #Lymphocytes 2.3 thou/uL (1.20-3.40); #Monocytes 1.1 thou/uL (0.11-0.59); #Neutrophils 6.2 thou/uL (1.40-6.50); %Basophils 0.6 % (0.0-1.0); %Eosinophils 3.3 % (0.0-10.0); %Monocytes 11.1 % (0.0-10.0); Hemoglobin 8.2 g/dL (14.0-18.0); Mean Corpuscular HGB CONC 35.3 g/dL (32.0-36.0); Mean Corpuscular Volume 93.5 fL (78.0-98.0); Mean Platelet Volume 7.9 fL (7.4-10.4); Platelet Count 142 thou/uL (130-400); RBC Distribution Width 12.1 % (11.5-14.5); Red Blood Cell (RBC) Count 2.47 mill/uL (4.70-6.10)
[2020-04-29 06:31] LABS: Anion Gap 18 mmol/L (10-20); BUN (Urea Nitrogen) 40 mg/dL (8.4-25.7); Calc. Creatinine Clearance 9 mL/min (70-130); Calcium 8.5 mg/dL (7.8-10.44); Carbon Dioxide 25 mmol/L (23-31); Chloride 95 mmol/L (98-107); Estimated GFR-MDRD 8; Glucose 166 mg/dL (83-110); Magnesium 2.1 mg/dL (1.6-2.6); Phosphorus 4.4 mg/dL (2.3-4.7); Potassium 4.1 mmol/L (3.5-5.1); Sodium 134 mmol/L (136-145)
[2020-04-29] MEDS: Carvedilol 3.125 MG TAB PO SCH ×2 (08:20→17:24)
[2020-04-29] MEDS: Sevelamer Carbonate 800 MG TAB PO SCH ×3 (08:20→20:14)
[2020-04-29] MEDS: Saccharomyces boulardii 250 MG CAP PO SCH (08:20)
[2020-04-29] MEDS: Famotidine 20 MG TAB PO SCH (08:20)
[2020-04-29] MEDS: Heparin 5,000 UNITS/ML VIAL SC SCH ×2 (08:21→20:14)
[2020-04-29] MEDS: NIFEdipine XL 30 MG TAB PO SCH (08:21)
[2020-04-29] MEDS: Polyethylene Glycol 3350 17 GM Packet PO SCH (08:21)
[2020-04-29] MEDS: Tamsulosin HCl 0.4 MG CAP PO SCH (08:21)
[2020-04-29 11:21] LABS: Vancomycin, Random 12.9 ug/mL (See Comment)
--- NOTE | 2020-04-29 12:46 | PDOC.NEPPN ---
- Subjective Encounter Date: 04/29/20 Subjective: Seen in follow up for ESRD management. Admitted with acute onset of fever and chills during hemodialysis. Feeling better currently. Fever has subsided. No nausea or vomiting or chest pain. - Objective Vital Signs & Weight: Vital Signs (12 hours) Temp Pulse Resp BP BP Pulse Ox 04/29/20 11:20 97.8 F 54 L 20 154/64 H 97 04/29/20 08:36 97 04/29/20 08:21 60 145/67 H 04/29/20 07:20 98.2 F 55 L 20 145/67 H 97 04/29/20 05:30 98 F 53 L 16 160/70 H 95 04/29/20 02:00 98 F 62 16 159/65 H 98 Weight Admit Weight 143 lb 6.4 oz Weight 143 lb 6.4 oz I&O: 04/28/20 04/29/20 04/30/20 06:59 06:59 06:59 Intake Total 1180 Output Total 120 Balance -120 1180 Result Diagrams: 04/29/20 05:39 04/29/20 05:39 Additional Labs: Accuchecks 04/29/20 04/28/20 11:28 16:06 POC Glucose 157 H 165 H Nephrology ROS - Medication Medications: Active Medications Generic Name Dose Route Start Last Admin Trade Name Freq PRN Reason Stop Dose Admin Atorvastatin Calcium 20 mg 04/28/20 21:00 04/28/20 20:32 Atorvastatin Calcium 20 Mg Tab PO 20 mg HS SVETLANA Administration Carvedilol 3.125 mg 04/28/20 17:00 04/29/20 08:20 Carvedilol 3.125 Mg Tab PO 3.125 mg BID-WM SVETLANA Administration Famotidine 20 mg 04/28/20 09:00 04/29/20 08:20 Famotidine 20 Mg Tab PO 20 mg DAILY SVETLANA Administration Heparin Sodium (Porcine) 5,000 units 04/28/20 09:00 04/29/20 08:21 Heparin 5,000 Units/Ml Vial SC 5,000 units BID SVETLANA Administration Piperacillin Sod/Tazobactam 100 mls @ 200 mls/hr 04/29/20 02:00 04/29/20 01:36 Sod 2.25 gm/ Sodium Chloride IVPB 100 mls 0200,1400 SVETLANA Administration Insulin Human Lispro 0 units 04/28/20 04:55 04/29/20 06:18 Humalog 300 Units/3 Ml Vial SC 2 unit .MILD SLIDING SCALE PRN Administration Mild Correctional Scale Nifedipine 30 mg 04/29/20 09:00 04/29/20 08:21 Nifedipine Xl 30 Mg Tab PO 30 mg DAILY SVETLANA Administration Polyethylene Glycol 17 gm 04/28/20 09:00 04/29/20 08:21 Polyethylene Glycol 3350 17 Gm Packet PO 17 gm DAILY SVETLANA Administration Saccharomyces Boulardii 250 mg 04/29/20 09:00 04/29/20 08:20 Saccharomyces Boulardii 250 Mg Cap PO 250 mg DAILY SVETLANA Administration Sevelamer Carbonate 800 mg 04/28/20 21:00 04/29/20 08:20 Sevelamer Carbonate 800 Mg Tab PO 800 mg TID SVETLANA Administration Sodium Chloride 10 ml 04/28/20 09:00 04/29/20 08:21 Flush - Normal Saline 10 Ml Syringe IVF 10 ml Q12HR SVETLANA Administration Tamsulosin HCl 0.4 mg 04/29/20 09:00 04/29/20 08:21 Tamsulosin Hcl 0.4 Mg Cap PO 0.4 mg DAILY SVETLANA Administration - Exam General Appearance: awake alert Eye: PERRL, anicteric sclera ENT: normocephalic atraumatic, moist mucosa Neck: supple, no JVD Neck - other findings: Right IJ TDC noted Respiratory: CTAB, no wheezes, no rales, no ronchi, normal chest expansion, no tachypnea Cardiovascular: RRR Gastrointestinal: soft, non-tender, non-distended, normal bowel sounds Extremities: no cyanosis, no edema Extremities - other findings: Right AVF with good thrill with mild infiltration proximally Neurological: CN's grossly intact, no focal deficits PSYCH: normal affect, A&O x 3 Nephrology Results - Labs Result Diagrams: 04/29/20 05:39 04/29/20 05:39 Lab results: WBC 10.0 thou/uL (4.8-10.8) 04/29/20 05:39 Hgb 8.2 g/dL (14.0-18.0) L 04/29/20 05:39 Hct 23.1 % (42.0-52.0) L 04/29/20 05:39 MCV 93.5 fL (78.0-98.0) 04/29/20 05:39 Plt Count 142 thou/uL (130-400) 04/29/20 05:39 Neutrophils % 62.0 % (42.0-75.0) 04/29/20 05:39 Band Neuts % (Manual) 15 % (5-11) H 04/27/20 23:00 Sodium 134 mmol/L (136-145) L 04/29/20 05:39 Potassium 4.1 mmol/L (3.5-5.1) 04/29/20 05:39 Chloride 95 mmol/L (98-107) L 04/29/20 05:39 Carbon Dioxide 25 mmol/L (23-31) 04/29/20 05:39 BUN 40 mg/dL (8.4-25.7) H 04/29/20 05:39 Creatinine 6.87 mg/dL (0.7-1.3) H 04/29/20 05:39 Glucose 166 mg/dL (83-110) H 04/29/20 05:39 Lactic Acid 1.9 mmol/L (0.5-2.2) 04/28/20 02:12 Calcium 8.5 mg/dL (7.8-10.44) 04/29/20 05:39 Total Bilirubin 0.8 mg/dL (0.2-1.2) 04/27/20 23:00 AST 32 U/L (5-34) 04/27/20 23:00 ALT 31 U/L (8-55) 04/27/20 23:00 Alkaline Phosphatase 118 U/L (40-110) H 04/27/20 23:00 Troponin I 0.017 ng/mL (< 0.028) 04/27/20 23:00 Serum Total Protein 8.3 g/dL (5.8-8.1) H 04/27/20 23:00 Albumin 4.4 g/dL (3.4-4.8) 04/27/20 23:00 Urine Ketones Negative mg/dL (Negative) 04/28/20 05:45 Urine Blood Trace (Negative) A 04/28/20 05:45 Urine Nitrite Negative (Negative) 04/28/20 05:45 Ur Leukocyte Esterase Negative Ele/uL (Negative) 04/28/20 05:45 Urine RBC 0-3 HPF (0-3) 04/28/20 05:45 Urine WBC 7-10 HPF (0-3) A 04/28/20 05:45 Ur Squamous Epith Cells 0-3 HPF (0-3) 04/28/20 05:45 Urine Bacteria None Seen HPF (None Seen) 04/28/20 05:45 Nephrology AP PN - Plan Gram negative bacteremia Probable catheter associated blood stream infection Acute febrile illness ESRD on HD. DM with diabetic nephropathy Anemia of chronic illness. Plan Will dialyze patient today with UF as tolerated in line with outpatient sche dule. See EMR for dialysis order. Continue antibiotic therapy as per ID. Get culture from TDC. Await microbe ID and susceptibility Continue other treatments.
[2020-04-29] MEDS ORDERED: Vancomycin HCl 500 MG in Sodium Chloride 0.9% 100 ML IVPB SCH (13:45)
[2020-04-29] MEDS ORDERED: Piperacillin/Tazobactam 1.125 GM in Sodium Chloride 0.9% 100 ML IVPB SCH (18:00)
[2020-04-29] MEDS: Atorvastatin Calcium 20 MG TAB PO SCH (20:14)
--- NOTE | 2020-04-29 22:39 | PDOC.HOSPP ---
- Subjective Encounter Date: 04/29/20 Encounter Time: 10:30 Subjective: Patient seen and examined for sepsis with bacteremia. Denies any new nausea, vomiting, fever, cough or shortness of breath. - Objective Vital Signs & Weight: Vital Signs (12 hours) Temp Pulse Resp BP Pulse Ox 04/29/20 20:00 98.1 F 60 18 100/54 L 94 L 04/29/20 17:26 98.0 F 59 L 16 152/63 H 98 04/29/20 11:20 97.8 F 54 L 20 154/64 H 97 Weight Admit Weight 143 lb 6.4 oz Weight 143 lb 6.4 oz I&O: 04/28/20 04/29/20 04/30/20 06:59 06:59 06:59 Intake Total 1180 650 Output Total 120 1700 Balance -120 1180 -1050 Result Diagrams: 04/29/20 05:39 04/29/20 05:39 Additional Labs: Accuchecks 04/29/20 04/29/20 04/29/20 20:43 11:28 05:15 POC Glucose 196 H 157 H 164 H Microbiology 04/27/20 23:25 Venous blood - Right Hand Blood Culture - Preliminary Enterobacter cloacae complex 04/27/20 23:25 Venous blood - Left Arm Blood Culture - Preliminary Enterobacter cloacae complex Radiology Reviewed by me: Yes (Chest x-ray negative for infiltrate) Hospitalist ROS - Review of Systems Respiratory: denies: cough, dry, shortness of breath, hemoptysis, SOB with excertion, pleuritic pain, sputum, wheezing, other Cardiovascular: denies: chest pain, palpitations, orthopnea, paroxysmal noc. dyspnea, edema, light headedness, other - Medication Medications: Active Medications Generic Name Dose Route Start Last Admin Trade Name Freq PRN Reason Stop Dose Admin Atorvastatin Calcium 20 mg 04/28/20 21:00 04/29/20 20:14 Atorvastatin Calcium 20 Mg Tab PO 20 mg HS SVETLANA Administration Carvedilol 3.125 mg 04/28/20 17:00 04/29/20 17:24 Carvedilol 3.125 Mg Tab PO 3.125 mg BID-WM SVETLANA Administration Famotidine 20 mg 04/28/20 09:00 04/29/20 08:20 Famotidine 20 Mg Tab PO 20 mg DAILY SVETLANA Administration Heparin Sodium (Porcine) 5,000 units 04/28/20 09:00 04/29/20 20:14 Heparin 5,000 Units/Ml Vial SC 5,000 units BID SVETLANA Administration Piperacillin Sod/Tazobactam 100 mls @ 200 mls/hr 04/29/20 02:00 04/29/20 17:25 Sod 2.25 gm/ Sodium Chloride IVPB 100 mls 0200,1400 SVETLANA Administration Piperacillin Sod/Tazobactam 100 mls @ 200 mls/hr 04/29/20 18:00 04/29/20 20:14 Sod 1.125 gm/ Sodium Chloride IVPB 100 mls MoWeFr SVETLANA Administration Insulin Human Lispro 0 units 04/28/20 04:55 04/29/20 06:18 Humalog 300 Units/3 Ml Vial SC 2 unit .MILD SLIDING SCALE PRN Administration Mild Correctional Scale Nifedipine 30 mg 04/29/20 09:00 04/29/20 08:21 Nifedipine Xl 30 Mg Tab PO 30 mg DAILY SVETLANA Administration Polyethylene Glycol 17 gm 04/28/20 09:00 04/29/20 08:21 Polyethylene Glycol 3350 17 Gm Packet PO 17 gm DAILY SVETLANA Administration Saccharomyces Boulardii 250 mg 04/29/20 09:00 04/29/20 08:20 Saccharomyces Boulardii 250 Mg Cap PO 250 mg DAILY SVETLANA Administration Sevelamer Carbonate 800 mg 04/28/20 21:00 04/29/20 20:14 Sevelamer Carbonate 800 Mg Tab PO 800 mg TID SVETLANA Administration Sodium Chloride 10 ml 04/28/20 09:00 04/29/20 20:14 Flush - Normal Saline 10 Ml Syringe IVF 10 ml Q12HR SVETLANA Administration Tamsulosin HCl 0.4 mg 04/29/20 09:00 04/29/20 08:21 Tamsulosin Hcl 0.4 Mg Cap PO 0.4 mg DAILY SVETLANA Administration - Exam General Appearance: NAD Neck: supple, no JVD Heart: no gallops, no rubs Respiratory: no wheezes, no rales, no ronchi Gastrointestinal: soft, non-tender, normal bowel sounds Extremities: no cyanosis Musculoskeletal: generalized weakness Psychiatric: normal affect, A&O x 3 Hosp A/P (1) Sepsis Code(s): A41.9 - SEPSIS, UNSPECIFIED ORGANISM Status: Acute Qualifiers: Sepsis acute organ dysfunction status: with acute organ dysfunction (2) Bacteremia due to Enterobacter species Code(s): R78.81 - BACTEREMIA; B96.89 - OTH BACTERIAL AGENTS THE CAUSE OF DISEASES CLASSD [id number] Status: Acute (3) End stage renal disease on dialysis Code(s): N18.6 - END STAGE RENAL DISEASE; Z99.2 - DEPENDENCE ON RENAL DIALYSIS Status: Acute (4) Lactic acidosis Code(s): E87.2 - ACIDOSIS Status: Acute (5) DM2 (diabetes mellitus, type 2) Status: Chronic (6) Hemodialysis catheter infection Code(s): T82.7XXA - INFECT/INFLM REACT D/T OTH CARDI/VASC DEV/IMPLNT/GRFT, INIT Status: Suspected - Plan 04/29 Blood cultures positive for Enterobacter. Urine culture have been negative. Will try to obtain culture from the dialysis catheter per nephrology recommendation. Continue empiric antibiotics. Monitor vancomycin level. Will narrow down antibiotics based on the sensitivities. Continue low-dose Procardia XL along with carvedilol. Continue statins. Continue Flomax. Echocardiogram per infectious disease recommendation. Recheck labs in a.m. Sepsis was present on admission. Insulin sliding scale. Other chronic issueshypertension, benign prostatic hypertrophy, chronic anemia due to renal disease, hyperlipidemia
[2020-04-30] MEDS: Piperacillin/Tazobactam 2.25 GM in Sodium Chloride 0.9% 100 ML IVPB SCH (02:15)
[2020-04-30 07:39] LABS: Anion Gap 18 mmol/L (10-20); BUN (Urea Nitrogen) 31 mg/dL (8.4-25.7); Calc. Creatinine Clearance 11 mL/min (70-130); Calcium 8.9 mg/dL (7.8-10.44); Carbon Dioxide 25 mmol/L (23-31); Chloride 99 mmol/L (98-107); Estimated GFR-MDRD 10; Glucose 169 mg/dL (83-110); Potassium 4.5 mmol/L (3.5-5.1); Sodium 137 mmol/L (136-145)
[2020-04-30 07:58] VITALS: TEMP 97.8
[2020-04-30] MEDS: Polyethylene Glycol 3350 17 GM Packet PO SCH (08:36)
[2020-04-30] MEDS: Sevelamer Carbonate 800 MG TAB PO SCH (08:36)
[2020-04-30] MEDS: Saccharomyces boulardii 250 MG CAP PO SCH (08:36)
[2020-04-30] MEDS: Carvedilol 3.125 MG TAB PO SCH (08:37)
[2020-04-30] MEDS: Tamsulosin HCl 0.4 MG CAP PO SCH (08:37)
[2020-04-30] MEDS: Heparin 5,000 UNITS/ML VIAL SC SCH (08:37)
[2020-04-30] MEDS: Famotidine 20 MG TAB PO SCH (08:37)
[2020-04-30] MEDS: NIFEdipine XL 30 MG TAB PO SCH (08:37)
[2020-04-30 08:51] LABS: Hemoglobin 8.2 g/dL (14.0-18.0); Mean Corpuscular HGB CONC 34.2 g/dL (32.0-36.0); Mean Corpuscular Hemoglobin 31.7 pg (27.0-31.0); Mean Corpuscular Volume 92.6 fL (78.0-98.0); Mean Platelet Volume 7.8 fL (7.4-10.4); Platelet Count 157 thou/uL (130-400); RBC Distribution Width 11.9 % (11.5-14.5); Red Blood Cell (RBC) Count 2.57 mill/uL (4.70-6.10); White Blood Cell (WBC) Count 6.7 thou/uL (4.8-10.8)
--- NOTE | 2020-04-30 10:02 | PDOC.NEPPN ---
- Subjective Encounter Date: 04/30/20 Subjective: Seen in follow up for ESRD management. Was admitted due to acute onset of fever associated with chills during hemodialysis. Feeling better. Denied SOB, Nausea, vomiting, leg swelling of focal weakness. - Objective Vital Signs & Weight: Vital Signs (12 hours) Temp Pulse Resp BP BP Pulse Ox 04/30/20 08:44 99 04/30/20 08:37 63 138/53 L 04/30/20 07:58 97.8 F 63 16 138/53 L 99 04/30/20 02:15 115/54 L Weight Admit Weight 143 lb 6.4 oz Weight 143 lb 6.4 oz I&O: 04/29/20 04/30/20 05/01/20 06:59 06:59 06:59 Intake Total 1180 750 Output Total 1700 Balance 1180 -950 Result Diagrams: 04/30/20 06:50 04/30/20 06:50 Additional Labs: Accuchecks 04/30/20 04/29/20 04/29/20 06:18 20:43 11:28 POC Glucose 161 H 196 H 157 H 04/29/20 05:15 POC Glucose 164 H Nephrology ROS - Medication Medications: Active Medications Generic Name Dose Route Start Last Admin Trade Name Freq PRN Reason Stop Dose Admin Atorvastatin Calcium 20 mg 04/28/20 21:00 04/29/20 20:14 Atorvastatin Calcium 20 Mg Tab PO 20 mg HS SVETLANA Administration Carvedilol 3.125 mg 04/28/20 17:00 04/30/20 08:37 Carvedilol 3.125 Mg Tab PO 3.125 mg BID-WM SVETLANA Administration Famotidine 20 mg 04/28/20 09:00 04/30/20 08:37 Famotidine 20 Mg Tab PO 20 mg DAILY SVETLANA Administration Heparin Sodium (Porcine) 5,000 units 04/28/20 09:00 04/30/20 08:37 Heparin 5,000 Units/Ml Vial SC 5,000 units BID SVETLANA Administration Piperacillin Sod/Tazobactam 100 mls @ 200 mls/hr 04/29/20 02:00 04/30/20 02:15 Sod 2.25 gm/ Sodium Chloride IVPB 100 mls 0200,1400 SVETLANA Administration Piperacillin Sod/Tazobactam 100 mls @ 200 mls/hr 04/29/20 18:00 04/29/20 2 0:14 Sod 1.125 gm/ Sodium Chloride IVPB 100 mls MoWeFr SVETLANA Administration Insulin Human Lispro 0 units 04/28/20 04:55 04/29/20 06:18 Humalog 300 Units/3 Ml Vial SC 2 unit .MILD SLIDING SCALE PRN Administration Mild Correctional Scale Nifedipine 30 mg 04/29/20 09:00 04/30/20 08:37 Nifedipine Xl 30 Mg Tab PO 30 mg DAILY SVETLANA Administration Polyethylene Glycol 17 gm 04/28/20 09:00 04/30/20 08:36 Polyethylene Glycol 3350 17 Gm Packet PO 17 gm DAILY SVETLANA Administration Saccharomyces Boulardii 250 mg 04/29/20 09:00 04/30/20 08:36 Saccharomyces Boulardii 250 Mg Cap PO 250 mg DAILY SVETLANA Administration Sevelamer Carbonate 800 mg 04/28/20 21:00 04/30/20 08:36 Sevelamer Carbonate 800 Mg Tab PO 800 mg TID SVETLANA Administration Sodium Chloride 10 ml 04/28/20 09:00 04/30/20 08:37 Flush - Normal Saline 10 Ml Syringe IVF 10 ml Q12HR SVETLANA Administration Tamsulosin HCl 0.4 mg 04/29/20 09:00 04/30/20 08:37 Tamsulosin Hcl 0.4 Mg Cap PO 0.4 mg DAILY SVETLANA Administration - Exam General Appearance: awake alert Eye: anicteric sclera ENT: normocephalic atraumatic, moist mucosa Neck: supple, symmetric, no JVD Respiratory: CTAB, no wheezes, no ronchi, normal chest expansion Cardiovascular: RRR, no murmur Gastrointestinal: soft, non-tender, non-distended, normal bowel sounds Extremities: no cyanosis, no edema Extremities - other findings: Right wrist AVF with good thrill noted Neurological: CN's grossly intact, no focal deficits PSYCH: A&O x 3 Nephrology Results - Labs Result Diagrams: 04/30/20 06:50 04/30/20 06:50 Lab results: WBC 6.7 thou/uL (4.8-10.8) 04/30/20 06:50 Hgb 8.2 g/dL (14.0-18.0) L 04/30/20 06:50 Hct 23.8 % (42.0-52.0) L 04/30/20 06:50 MCV 92.6 fL (78.0-98.0) 04/30/20 06:50 Plt Count 157 thou/uL (130-400) 04/30/20 06:50 Neutrophils % 62.0 % (42.0-75.0) 04/29/20 05:39 Band Neuts % (Manual) 15 % (5-11) H 04/27/20 23:00 Sodium 137 mmol/L (136-145) 04/30/20 06:50 Potassium 4.5 mmol/L (3.5-5.1) 04/30/20 06:50 Chloride 99 mmol/L (98-107) 04/30/20 06:50 Carbon Dioxide 25 mmol/L (23-31) 04/30/20 06:50 BUN 31 mg/dL (8.4-25.7) H 04/30/20 06:50 Creatinine 5.66 mg/dL (0.7-1.3) H 04/30/20 06:50 Glucose 169 mg/dL (83-110) H 04/30/20 06:50 Lactic Acid 1.9 mmol/L (0.5-2.2) 04/28/20 02:12 Calcium 8.9 mg/dL (7.8-10.44) 04/30/20 06:50 Total Bilirubin 0.8 mg/dL (0.2-1.2) 04/27/20 23:00 AST 32 U/L (5-34) 04/27/20 23:00 ALT 31 U/L (8-55) 04/27/20 23:00 Alkaline Phosphatase 118 U/L (40-110) H 04/27/20 23:00 Troponin I 0.017 ng/mL (< 0.028) 04/27/20 23:00 Serum Total Protein 8.3 g/dL (5.8-8.1) H 04/27/20 23:00 Albumin 4.4 g/dL (3.4-4.8) 04/27/20 23:00 Urine Ketones Negative mg/dL (Negative) 04/28/20 05:45 Urine Blood Trace (Negative) A 04/28/20 05:45 Urine Nitrite Negative (Negative) 04/28/20 05:45 Ur Leukocyte Esterase Negative Ele/uL (Negative) 04/28/20 05:45 Urine RBC 0-3 HPF (0-3) 04/28/20 05:45 Urine WBC 7-10 HPF (0-3) A 04/28/20 05:45 Ur Squamous Epith Cells 0-3 HPF (0-3) 04/28/20 05:45 Urine Bacteria None Seen HPF (None Seen) 04/28/20 05:45 Nephrology AP PN - Plan Enterobacter cloaca bacteremia: Most likely from cather associated infection. Urine culture was no growth. Presumed catheter associated blood stream infection Acute febrile illness: due to Enterobacter bacteremia ESRD on HD. DM with diabetic nephropathy Anemia of chronic illness. Plan Continue antibiotic. Agjust in line with microbe ID and susceptibility. defer to ID HD to continue according to outpatient dialysis schedule. Continue other treatments. Disposition: There is no immediate need for TDC removal at this time. We will plan on removing the catheter once AVF is consistent accessed. Patient can be discharged from Nephrology point of view.
[2020-04-30 10:47] LABS: Eosinophils 4 % (0-10); Lymphocytes 42 % (21-51); MDiff Complete? YES; Monocytes 22 % (0-10); Neutrophil 32 % (42-75); Platelet Morphology Comment Appears Adequate
[2020-04-30 11:32] VITALS: BP 143/69
--- NOTE | 2020-04-30 13:34 | DIS ---
DATE OF ADMISSION: 04/28/2020 DATE OF DISCHARGE: 04/30/2020 DISCHARGE DISPOSITION: Home. FOLLOWUP: Follow up with primary care physician at [facility] in 1 week. The patient was advised to follow up on his echocardiogram report. The patient was seen and examined on the day of discharge. Denies any new complaints. No chest pain, shortness of breath, fever, or chills reported. DISCHARGE MEDICATION: Ciprofloxacin 500 mg daily for next 3 weeks. The patient will need antibiotics to be continued 1 week after removal of the dialysis catheter. All other home medications were left unchanged. BRIEF HOSPITAL COURSE: The patient is a 74-year-old male with end-stage renal disease, on hemodialysis, with tunneled hemodialysis catheter, presented to the emergency room with fever. His maximum temperature was 102. He also had chills along with generalized weakness. Please refer to the history and physical for further details. The patient was admitted to the hospital with a diagnosis of sepsis suspected due to dialysis catheter infection. His blood culture 2/2 was consistent with Enterobacter sensitive to quinolones and ceftriaxone. The patient has been afebrile for more than 48 hours. I discussed with Nephrology as well as Infectious Disease. The plan is to discharge home on oral ciprofloxacin. He was empirically placed on vancomycin and Zosyn on admission. He will continue ciprofloxacin 1 week after removal of the dialysis catheter. His dialysis catheter will probably be removed next week if his fistula is working okay. He has been cleared by consultants for discharge. FINAL DIAGNOSES: 1. Sepsis with Enterobacter bacteremia due to dialysis catheter associated infection. 2. End-stage renal disease, on hemodialysis. 3. Lactic acidosis. 4. Diabetes mellitus type 2. 5. Hyponatremia. The patient understands the above plan of care. Job ID: [id number]
--- NOTE | 2020-04-30 14:07 | EKG ---
Test Reason : Blood Pressure : / mmHG Vent. Rate : 089 BPM Atrial Rate : 089 BPM P-R Int : 134 ms QRS Dur : 094 ms QT Int : 384 ms P-R-T Axes : 006 011 036 degrees QTc Int : 467 ms Normal sinus rhythm Normal ECG Confirmed by EDI MARLEY ([id number]), scientific publications editor VAELRY CARRILLO ([id number]) on 04/30/2020 2:07:40 PM Referred By: Confirmed By:EDI MARLEY
== END 2020-04-30 13:44 | disposition home or self-care (01) | DRG 314 ==
LOC: ERS 22:38 → T4-B 04-28 05:26
PROVIDERS: ADMIT Internal Medicine; ATTEND Internal Medicine
PROC: 5A1D70Z Performance of Urinary Filtration, Intermittent, Less than 6 Hours Per Day (ICD-10-PCS; principal; 2020-04-29)
DX: T80.211A Bloodstream infection due to central venous catheter, initial encounter (principal); N18.6 End stage renal disease; A41.59 Other Gram-negative sepsis; E87.2 Acidosis; E87.1 Hypo-osmolality and hyponatremia; Y84.8 Other medical procedures as the cause of abnormal reaction of the patient, or of later complication, without mention of misadventure at the time of the procedure; E11.22 Type 2 diabetes mellitus with diabetic chronic kidney disease; Z20.828 Contact with and (suspected) exposure to other viral communicable diseases; I10 Essential (primary) hypertension; I25.5 Ischemic cardiomyopathy; E78.5 Hyperlipidemia, unspecified; D63.1 Anemia in chronic kidney disease; N40.0 Benign prostatic hyperplasia without lower urinary tract symptoms; Z99.2 Dependence on renal dialysis; Z79.899 Other long term (current) drug therapy; Z79.4 Long term (current) use of insulin; Z95.810 Presence of automatic (implantable) cardiac defibrillator
CPT/HCPCS: 36415; 36416; 71045; 80048; 80053; 80202; 81001; 83605; 83735; 84100; 84484; 85025; 87040; 87077; 87086; 87149; 87186; 90935; 93005; 93306; 96365; 96366; 96367; 96375; G0257; J0692; J1644; J2405; J2543; J3370; J3490; U0002